=== PATIENT | male | born 1940 | race Caucasian/White ===

== ENCOUNTER 2016-06-05 06:49 | Day surgery (SDC) | payer MEDICARE ==
[2016-06-05] MEDS ORDERED: fentaNYL 100 MCG/2 ML SDV ONE (07:22)
[2016-06-05] MEDS ORDERED: Propofol 200 MG/20 ML SDV ONE (07:22)
[2016-06-05] MEDS ORDERED: Lactated Ringers 1,000 ML IV SCH (07:45)
[2016-06-05] MEDS ORDERED: Cyanocobalamin (Vitamin B12) 1,000 MCG/ML SDV IM ONE (08:00)
[2016-06-05] MEDS ORDERED: Glycopyrrolate 0.2 MG/ML 2 ML SYRINGE IVPUSH ONE (08:15)
[2016-06-05] MEDS ORDERED: MVI, Adult with Vitamin K 10 ML, Thiamine 200 MG, Chromium/Copper/Mang/Selen/Zn 1 ML in... IV ONE ×4 (08:45)
[2016-06-05 10:39] VITALS: BP 125/77
--- NOTE | 2016-06-07 14:38 | OR ---
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 OPERATIVE PROCEDURES: Upper GI endoscopy with biopsies of gastric pouch for CLOtest. ANESTHESIA: IV sedation. INDICATION FOR PROCEDURE: This is a 76-year-old male status post Coby-en-Y gastric bypass in 2003. Overall, he has had a very good result. Preoperatively, 287 pounds and he has been now maintaining weight around 180 pounds with a BMI of 26. He recently had some heartburn as well as dysphagia referable to the lower esophagus. He was just started on Protonix 2 days ago and the plan is to proceed with upper endoscopy with biopsies or dilation as indicated. Potential risks including bleeding and perforation were discussed, and the patient wishes to proceed. DETAILS OF PROCEDURE: The patient was taken to the operating room and placed in a left lateral decubitus position. IV sedation was administered, after which the upper GI endoscope was passed orally through the length of the esophagus into the gastric pouch and from there through the gastrojejunostomy roughly 20 cm into the Coby limb. The patient was noted to have a normal hypopharynx, larynx, upper esophageal sphincter, and esophageal body. In the EG junction at the level of the gastric pouch was some mild redness. No erosions or ulcers were seen and the gastrojejunostomy was widely patent with no significant inflammation at that location or within the more distal Coby limb. At this point, biopsies were obtained from the gastric pouch, sent for CLOtest for H. pylori. Minimal bleeding from the biopsy sites was seen and the procedure concluded. The patient was taken to the recovery room in satisfactory condition. At this point, we will have the patient continue the Protonix started 2 days ago. Follow up with Rosanne Matias in 1 month. Marv Stallworth MD /[id number]
== END 2016-06-05 11:30 | disposition home or self-care (01) ==
LOC: JP.SDS 06:49
PROVIDERS: ATTEND Surgery
DX: K29.70 Gastritis, unspecified, without bleeding (principal); G47.33 Obstructive sleep apnea (adult) (pediatric); Z98.84 Bariatric surgery status
CPT/HCPCS: 43239; 87081; J2704; J3010; J3411; J3420; J7120

== ENCOUNTER 2018-06-30 08:35 | Day surgery (SDC) | payer MEDICARE ==
[2018-06-30] MEDS ORDERED: Lactated Ringers 1,000 ML IV ONE (09:00)
[2018-06-30] MEDS ORDERED: Cyanocobalamin (Vitamin B12) 1,000 MCG/ML SDV IM ONE (09:00)
[2018-06-30] MEDS ORDERED: MVI, Adult with Vitamin K 10 ML, Thiamine 200 MG, Chromium/Copper/Mang/Selen/Zn 1 ML in... IV ONE ×4 (10:00)
[2018-06-30] MEDS ORDERED: Propofol 200 MG/20 ML SDV ONE (10:49)
[2018-06-30] MEDS ORDERED: fentaNYL 100 MCG/2 ML SDV ONE (10:49)
[2018-06-30 12:37] VITALS: BP 123/73
--- NOTE | 2018-07-07 08:55 | OR ---
DATE OF PROCEDURE: 06/30/2018 PREOPERATIVE DIAGNOSIS: Postprandial upper and mid abdominal pain. POSTOPERATIVE DIAGNOSIS: Postprandial upper and mid abdominal pain associated with normal upper GI endoscopy, status post Coby-en-Y gastric bypass. ANESTHESIA: IV sedation. INDICATIONS FOR PROCEDURE: A 78-year-old status post Coby-en-Y gastric bypass in 2003, recently has had increasing problems with postprandial abdominal pain. As part of his workup, he is undergoing upper GI endoscopy. Potential risks including bleeding and perforation were discussed, and the patient wishes to proceed. DETAILS OF PROCEDURE: The patient was taken to the operating room and placed in a left lateral decubitus position. IV sedation was administered, after which the upper GI endoscope was passed orally through the length of the esophagus and into the gastric pouch, from there through the gastrojejunostomy roughly 20 cm into the Coby limb. Overall, the examination was entirely normal. The pouch and gastrojejunostomy were without significant inflammation or stricturing, and otherwise the examination appeared to be completely normal. The scope was then withdrawn and the above findings reconfirmed. The patient's symptoms are suggestive of a partial small bowel obstruction. After discussion, we elected to proceed with an empiric laparotomy next week, and this will be set up for next Wednesday. Marv Stallworth MD /[id number]
== END 2018-06-30 13:05 | disposition home or self-care (01) ==
LOC: JP.SDS 08:35
PROVIDERS: ATTEND Surgery
DX: R10.13 Epigastric pain (principal); R13.10 Dysphagia, unspecified; I48.91 Unspecified atrial fibrillation; I10 Essential (primary) hypertension; J45.909 Unspecified asthma, uncomplicated; Z98.84 Bariatric surgery status; Z87.19 Personal history of other diseases of the digestive system; Z85.46 Personal history of malignant neoplasm of prostate
CPT/HCPCS: 43235; J2704; J3010; J3411; J3420; J7120

== ENCOUNTER 2018-07-05 05:31 | Inpatient (IN) | payer MEDICARE ==
[~2018-07-05 05:31] MED LIST: cefOXitin 2 GM in Sodium Chloride 0.9% 50 ML IV ONE
[2018-07-05] MEDS ORDERED: Acetaminophen 500 MG Tab PO ONE (05:45)
[2018-07-05] MEDS ORDERED: Scopolamine 1.5 MG Transdermal Patch TRDERM SCH (05:45)
[2018-07-05] MEDS ORDERED: Dextrose 5%-Lactated Ringers 1,000 ML IV SCH (06:30)
[2018-07-05] MEDS ORDERED: Meropenem 500 MG SDV ONE (06:38)
[2018-07-05] MEDS ORDERED: cefOXitin 2 GM in Sodium Chloride 0.9% 50 ML IV ONE (07:00)
[2018-07-05] MEDS ORDERED: Glycopyrrolate 0.2 MG/ML 5 ML MDV ONE (07:09)
[2018-07-05] MEDS ORDERED: Propofol 200 MG/20 ML SDV ONE (07:09)
[2018-07-05] MEDS ORDERED: Succinylcholine 200 MG/10 ML MDV ONE (07:09)
[2018-07-05] MEDS ORDERED: Neostigmine Methylsulfate 1 MG/ML 5 ML Syringe ONE (07:09)
[2018-07-05] MEDS ORDERED: Dexamethasone 4 MG/ML SDV ONE (07:09)
[2018-07-05] MEDS ORDERED: Rocuronium 50 MG/5 ML Vial ONE (07:09)
[2018-07-05] MEDS ORDERED: Ondansetron 4 MG/2 ML SDV ONE (07:09)
[2018-07-05] MEDS ORDERED: fentaNYL 250 MCG/5 ML SDV ONE ×2 (07:09→07:27)
[2018-07-05] MEDS ORDERED: HYDROmorphone/Normal Saline 15 MG/30 ML PCA IV PRN (07:28)
[2018-07-05] MEDS ORDERED: Ketamine 500 MG/5 ML MDV IV SCH (07:30)
[2018-07-05] MEDS ORDERED: Ketamine 50 MG in Sodium Chloride 0.9% 49.5 ML IV SCH (07:30)
[2018-07-05] MEDS ORDERED: Ropivacaine 40 ML, dexAMETHasone 8 MG, EPINEPHrine 0.4 MG, Sodium Chloride 0.9% 37.6 ML NERVRT SCH ×4 (07:30)
[2018-07-05] MEDS ORDERED: Naloxone 0.4 MG/ML SDV IV PRN (07:31)
[2018-07-05] MEDS ORDERED: Lactated Ringers 1,000 ML ONE (07:53)
[2018-07-05] MEDS ORDERED: Bupivacaine 0.5%/EPINEPHrine 1:200,000 50 ML MDV ONE (08:21)
[2018-07-05] MEDS ORDERED: hydrOXYzine HCl 100 MG/2 ML SDV IM ONE (09:06)
[2018-07-05] MEDS ORDERED: Labetalol 20 MG/4 ML Syringe IVPUSH PRN (09:47)
[2018-07-05] MEDS ORDERED: hydrOXYzine HCl 100 MG/2 ML SDV IM PRN (09:47)
[2018-07-05] MEDS ORDERED: Metoclopramide 10 MG/2 ML SDV IVPUSH PRN (09:47)
[2018-07-05] MEDS ORDERED: Ondansetron 4 MG/2 ML SDV IVPUSH PRN (09:47)
[2018-07-05] MEDS ORDERED: diphenhydrAMINE 50 MG/ML SDV IVPUSH PRN (09:47)
[2018-07-05] MEDS: Tamsulosin 0.4 MG Cap.ER PO SCH ×2 (11:42→20:36)
[2018-07-05] MEDS: Pantoprazole 40 MG Vial IVPUSH SCH (11:43)
[2018-07-05] MEDS: Acetaminophen Soln 650 MG/20.3 ML UD Cup PO SCH ×3 (11:43→23:57)
[2018-07-05] MEDS ORDERED: Warfarin 5 MG Tab PO ONE (12:00)
[2018-07-05] MEDS: Gabapentin 250 MG/5 ML Solution ML 470 ML Bottle PO SCH ×2 (14:11→20:40)
[2018-07-05] MEDS: cefOXitin 2 GM in Sodium Chloride 0.9% 50 ML IV SCH ×2 (14:12→20:36)
[2018-07-05] MEDS ORDERED: Lactated Ringers 500 ML IV ONE (15:12)
[2018-07-05] MEDS: Heparin Sodium 5,000 Units/ML Vial SUBCUT SCH (16:06)
[2018-07-05] MEDS: MVI, Adult with Vitamin K 10 ML, Thiamine 200 MG, Chromium/Copper/Mang/Selen/Zn 1 ML in... IV SCH ×4 (16:13)
[2018-07-05] MEDS ORDERED: Metoprolol Succinate 25 MG Tab.ER PO SCH (21:00)
[2018-07-05] MEDS ORDERED: Metoprolol Succinate 25 MG Tab.ER PO ONE (21:25)
[2018-07-05] MEDS ORDERED: Lactated Ringers 500 ML IV SCH (21:30)
[2018-07-05] MEDS: Dextrose 5%-Lactated Ringers 1,000 ML IV SCH (23:57)
[2018-07-06] MEDS: cefOXitin 2 GM in Sodium Chloride 0.9% 50 ML IV SCH (02:12)
[2018-07-06] MEDS ORDERED: Iohexol 647 MG/ML 50 ML SDV PO STA (02:18)
[2018-07-06] MEDS: Heparin Sodium 5,000 Units/ML Vial SUBCUT SCH ×2 (03:04→15:31)
[2018-07-06] MEDS ORDERED: Lactated Ringers 500 ML IV ONE ×2 (04:22→11:45)
--- NOTE | 2018-07-06 04:48 | CRLCR ---
Indication: Status post small bowel resection, leak check, history of Coby-en-Y Technique: KUB 3 view Comparison: None Findings/Impression: : Three frontal views of the abdomen were performed after administration of oral contrast material. Contrast material extends from the distal esophagus to the mid to distal jejunum. No evidence for extravasation of oral contrast. Midline laparotomy skin harjinder noted. Nonspecific bowel gas pattern. Surgical clips project over the pelvis. Dictated by Anh Minaya MD @ Jul 06 2018 4:47AM Signed by Dr. Anh Minaya @ Jul 06 2018 4:47AM
[2018-07-06] MEDS: Acetaminophen Soln 650 MG/20.3 ML UD Cup PO SCH ×4 (05:18→23:35)
--- NOTE | 2018-07-06 06:54 | PCM.SURGPN ---
- General Info Date of Service: 07/06/18 Date of Surgery/Procedure: 07/05/18 POD#: 1 Post-Op Diagnosis: Volvulous with revision of jejeunostomy Admission Diagnosis/Problem: Small bowel obstruction Functional Status: Reports: Pain Controlled, Ambulating, Urinating - Review of Systems General: Reports: No Symptoms HEENT: Reports: Visual Changes (Reports blurry vision that is new to him). Denies: Headaches Pulmonary: Denies: Shortness of Breath, Pleuritic Chest Pain, Cough Cardiovascular: Reports: Lightheadedness. Denies: Chest Pain, Dyspnea on Exertion Gastrointestinal: Denies: Abdominal Pain, Constipation, Diarrhea, Melena, Nausea , Vomiting Musculoskeletal: Reports: Leg Pain Skin: Reports: No Symptoms Neurological: Reports: Dizziness, Numbness (in his legs briefly this morning). Denies: Headache Psychiatric: Reports: No Symptoms - Patient Data Vitals - Most Recent: Last Vital Signs Temp 35.6 C 07/06/18 02:14 Pulse 64 07/06/18 02:14 Resp 16 07/06/18 02:14 BP 106/64 07/06/18 03:25 Pulse Ox 94 L 07/06/18 02:14 Weight - Most Recent: 80.104 kg I&O - Last 24 Hours: Intake & Output 07/05/18 07/05/18 07/06/18 14:59 22:59 06:59 Intake Total 480 2011 3050 Output Total 1025 1200 305 Balance -081 382 9163 Lab Results Last 24 Hrs: Laboratory Results - last 24 hr 07/05/18 07/06/18 07/06/18 Range/Units 15:23 04:00 04:00 WBC 10.9 12.9 H (4.5-11.0) K/uL RBC 3.89 L 3.51 L (4.30-5.90) M/uL Hgb 12.0 10.9 L (12.0-15.0) g/dL Hct 37.6 L 34.4 L (40.0-54.0) % MCV 97 98 (80-98) fL MCH 31 31 (27-31) pg MCHC 32 32 (32-36) % Plt Count 189 173 (150-400) K/uL Neut % (Auto) 84 H (36-66) % Lymph % (Auto) 8 L (24-44) % Lamar % (Auto) 8 H (2-6) % Eos % (Auto) 0 L (2-4) % Baso % (Auto) 0 (0-1) % PT 12.7 H (9.5-12.0) sec INR 1.16 (0.80-1.20) Sodium (140-148) mmol/L Potassium (3.6-5.2) mmol/L Chloride (100-108) mmol/L Carbon Dioxide (21-32) mmol/L Anion Gap (5.0-14.0) mmol/L BUN (7-18) mg/dL Creatinine (0.8-1.3) mg/dL Est Cr Clr Drug Dosing mL/min Estimated GFR (MDRD) (>60) Glucose (74-106) mg/dL Calcium (8.5-10.1) mg/dL Phosphorus (2.5-4.9) mg/dL Magnesium (1.8-2.4) mg/dL NT-Pro-B Natriuret Pep (5-450) pg/mL 07/06/18 Range/Units 04:00 WBC (4.5-11.0) K/uL RBC (4.30-5.90) M/uL Hgb (12.0-15.0) g/dL Hct (40.0-54.0) % MCV (80-98) fL MCH (27-31) pg MCHC (32-36) % Plt Count (150-400) K/uL Neut % (Auto) (36-66) % Lymph % (Auto) (24-44) % Lamar % (Auto) (2-6) % Eos % (Auto) (2-4) % Baso % (Auto) (0-1) % PT (9.5-12.0) sec INR (0.80-1.20) Sodium 142 (140-148) mmol/L Potassium 4.3 (3.6-5.2) mmol/L Chloride 105 (100-108) mmol/L Carbon Dioxide 31 (21-32) mmol/L Anion Gap 5.6 (5.0-14.0) mmol/L BUN 9 (7-18) mg/dL Creatinine 1.0 (0.8-1.3) mg/dL Est Cr Clr Drug Dosing 62.84 mL/min Estimated GFR (MDRD) > 60 (>60) Glucose 133 H (74-106) mg/dL Calcium 8.4 L (8.5-10.1) mg/dL Phosphorus 3.7 (2.5-4.9) mg/dL Magnesium 1.7 L (1.8-2.4) mg/dL NT-Pro-B Natriuret Pep 201 (5-450) pg/mL Med Orders - Current: Current Medications Acetaminophen (Tylenol) 650 mg PO Q6H [facility] Last Admin: 07/06/18 05:18 Dose: 650 mg Celecoxib (Celebrex) 200 mg PO DAILY@0800 [facility] Cyanocobalamin (Vitamin B12) 1,000 mcg IM ONETIME ONE Stop: 07/07/18 09:01 Diphenhydramine HCl (Benadryl) 50 mg IVPUSH Q4H PRN PRN Reason: ITCHING Escitalopram Oxalate (Lexapro) 20 mg PO DAILY [facility] Gabapentin (Neurontin) 300 mg PO TID [facility] Last Admin: 07/05/18 20:40 Dose: 300 mg Heparin Sodium (Porcine) (Heparin Sodium) 5,000 units SUBCUT Q12H [facility] Last Admin: 07/06/18 03:04 Dose: 5,000 units Hydromorphone HCl (Dilaudid Tube Roller 15 Mg In Ns 30 Ml) 0 mg IV ASDIRECTED PRN; Protocol PRN Reason: Pain Last Admin: 07/05/18 07:44 Dose: 0.3 mg Hydroxyzine HCl (Vistaril) 100 mg IM Q4H PRN PRN Reason: pain Dextrose/Lactated Ringer's (Dextrose 5%-Lactated Ringers) 1,000 mls @ 175 mls/ hr IV ASDIRECTED [facility] Last Admin: 07/05/18 23:57 Dose: 175 mls/hr Multivitamins/Minerals 10 ml/Thiamine HCl 200 mg/ Chromium/Copper/Manganese/ Seleni/Zn 1 ml/ Dextrose/Lactated Ringer's 1,013 mls @ 175 mls/hr IV DAILY@ 1600 [facility] Last Admin: 07/05/18 16:13 Dose: 175 mls/hr Labetalol HCl (Normodyne) 5 mg IVPUSH Q5M PRN PRN Reason: SBP over 160 OR DBP over 95 Metoclopramide HCl (Reglan) 10 mg IVPUSH Q6H PRN PRN Reason: NAUSEA NOT CONTROL BY ZOFRAN Metoprolol Succinate (Toprol Xl) 37.5 mg PO BEDTIME [facility] Miscellaneous Information (Remove Patch) 1 ea TRDERM ONETIME ONE Stop: 07/07/18 10:01 Naloxone HCl (Narcan) 0.1 mg IV ASDIRECTED PRN PRN Reason: decreased respiratory rate Scopolamine Patch (Check) 1 each TOP DAILY [facility] Stop: 07/07/18 09:48 Ondansetron HCl (Zofran) 4 mg IVPUSH Q4H PRN PRN Reason: Nausea/Vomiting Pantoprazole Sodium (Protonix Iv) 40 mg IVPUSH Q24H [facility] Last Admin: 07/05/18 11:43 Dose: 40 mg Scopolamine (Transderm-Scop) 1.5 mg TRDERM Q72H [facility] Stop: 07/07/18 10:00 Last Admin: 07/05/18 05:53 Dose: 1.5 mg Tamsulosin HCl (Flomax) 0.4 mg PO BEDTIME [facility] Last Admin: 07/05/18 20:36 Dose: 0.4 mg Discontinued Medications Acetaminophen (Tylenol Extra Strength) 1,000 mg PO ONETIME ONE Stop: 07/05/18 05:46 Last Admin: 07/05/18 05:54 Dose: 1,000 mg Bupivacaine HCl/Epinephrine Bitart (Marcaine 0.5%/Epinephrine 1:200,000) Confirm Administered Dose 50 ml .ROUTE .STK-MED ONE Stop: 07/05/18 08:22 Last Admin: 07/05/18 08:31 Dose: 30 ml Ropivacaine 40 ml/Dexamethasone 8 mg/Epinephrine HCl 0.4 mg/ Sodium Chloride 37.6 ml 0 ml NERVRT ASDIRECTED [facility] Last Admin: 07/05/18 07:49 Dose: 80 syringe Dexamethasone (Dexamethasone) Confirm Administered Dose 4 mg .ROUTE .STK-MED ONE Stop: 07/05/18 07:10 Fentanyl (Sublimaze) Confirm Administered Dose 250 mcg .ROUTE .STK-MED ONE Stop: 07/05/18 07:10 Fentanyl (Sublimaze) Confirm Administered Dose 250 mcg .ROUTE .STK-MED ONE Stop: 07/05/18 07:28 Glycopyrrolate (Robinul) Confirm Administered Dose 1 mg .ROUTE .STK-[facility] ONE Stop: 07/05/18 07:10 Hydroxyzine HCl (Vistaril) 75 mg IM ONETIME ONE Stop: 07/05/18 09:07 Last Admin: 07/05/18 09:10 Dose: 75 mg Dextrose/Lactated Ringer's (Dextrose 5%-Lactated Ringers) 1,000 mls @ 100 mls/ hr IV ASDIRECTED [facility] Last Admin: 07/05/18 05:53 Dose: 100 mls/hr Cefoxitin Sodium 2 gm/ Sodium (Chloride) 50 mls @ 100 mls/hr IV ONETIME ONE Stop: 07/05/18 07:29 Last Admin: 07/05/18 07:48 Dose: 100 mls/hr Linezolid (Zyvox) Confirm Administered Dose 300 mls @ as directed .ROUTE .[facility] ONE Stop: 07/05/18 06:39 Lactated Ringer's (Ringers, Lactated) Confirm Administered Dose 1,000 mls @ as directed .ROUTE .[facility] ONE Stop: 07/05/18 07:54 Cefoxitin Sodium 2 gm/ Sodium (Chloride) 50 mls @ 100 mls/hr IV Q6H [facility] Stop: 07/06/18 02:29 Last Admin: 07/06/18 02:12 Dose: 100 mls/hr Lactated Ringer's (Ringers, Lactated) 500 mls @ 1,000 mls/hr IV ASDIRECTED ONE Stop: 07/05/18 15:41 Last Admin: 07/05/18 15:40 Dose: 1,000 mls/hr Lactated Ringer's (Ringers, Lactated) 500 mls @ 500 mls/hr IV ASDIRECTED [facility] Stop: 07/05/18 22:30 Last Admin: 07/05/18 21:35 Dose: 500 mls/hr Lactated Ringer's (Ringers, Lactated) 500 mls @ 500 mls/hr IV ONETIME ONE Stop: 07/06/18 05:21 Last Admin: 07/06/18 04:39 Dose: 500 mls/hr Iohexol (Omnipaque-300) 50 ml PO .ASDIRECTED [facility] Stop: 07/06/18 02:19 Last Admin: 07/06/18 02:23 Dose: 50 ml Meropenem (Merrem) Confirm Administered Dose 500 mg .ROUTE .STK-MED ONE Stop: 07/05/18 06:39 Last Admin: 07/05/18 08:15 Dose: 500 mg Metoprolol Succinate (Toprol Xl) 12.5 mg PO ONETIME ONE Stop: 07/05/18 21:26 Last Admin: 07/05/18 21:40 Dose: 12.5 mg Neostigmine Methylsulfate (Neostigmine) Confirm Administered Dose 5 mg .ROUTE .STK-MED ONE Stop: 07/05/18 07:10 Ondansetron HCl (Zofran) Confirm Administered Dose 4 mg .ROUTE .STK-MED ONE Stop: 07/05/18 07:10 Propofol (Diprivan 20 Ml) Confirm Administered Dose 200 mg .ROUTE .STK-MED ONE Stop: 07/05/18 07:10 Rocuronium [place] (Zemuron) Confirm Administered Dose 50 mg .ROUTE .STK-MED ONE Stop: 07/05/18 07:10 Succinylcholine Chloride (Quelicin) Confirm Administered Dose 200 mg .ROUTE .STK -MED ONE Stop: 07/05/18 07:10 Warfarin Sodium (Coumadin) 10 mg PO ONETIME ONE Stop: 07/05/18 12:01 Last Admin: 07/05/18 11:42 Dose: 10 mg - Exam Wound/Incisions: Healing Well, Dressing Dry and Intact, No Drainage General: Alert, Oriented HEENT: Pupils Equal, Pupils Reactive, Mucous Membr. Moist/[place] Lungs: Clear to Auscultation, Normal Respiratory Effort Cardiovascular: Regular Rate, Regular Rhythm GI/Abdominal Exam: Normal Bowel Sounds, Soft, Tender (Left sided tenderness at the base of the ribs) Extremities: No: Pedal Edema, Leg Pain Neurological: No New Focal Deficit, Normal Speech Psy/Mental Status: Alert, Normal Affect, Normal Mood - Problem List Review Problem List Initiated/Reviewed/Updated: Yes - My Orders Last 24 Hours: Active Orders 24 hr Category Date Time Status Patient Status [ADT] Routine ADT 07/05/18 08:50 Active Ambulate [RC] ASDIRECTED Care 07/05/18 09:38 Active Communication Order [RC] ASDIRECTED Care 07/07/18 04:00 Active Communication Order [RC] ROUTINE Care 07/05/18 09:38 Active Dorsiflex/Plantar flex x 10 [RC] QSHIFT Care 07/05/18 09:38 Active Drain Management [RC] ASDIRECTED Care 07/05/18 09:38 Inactive Head of Bed Elevation [RC] CONTINUOUS Care 07/05/18 09:38 Active Insert Urinary Catheter [OM.PC] Per Unit Routine Care 07/05/18 09:38 Ordered Intake and Output [RC] ASDIRECTED Care 07/05/18 09:38 Active Notify Provider Intake and Out [RC] ASDIRECTED Care 07/05/18 09:38 Active Notify Provider [RC] PRN Care 07/05/18 09:38 Active Oxygen Therapy [RC] ASDIRECTED Care 07/05/18 09:38 Active Pneumonia Education [RC] UPON Care 07/05/18 09:38 Active Pulse Oximetry [RC] ASDIRECTED Care 07/05/18 09:38 Active RT BiPAP/CPAP [RC] ASDIRECTED Care 07/05/18 09:38 Active RT Incentive Spirometry [RC] ASDIRECTED Care 07/05/18 09:38 Active RT Incentive Spirometry [RC] Q1HWA Care 07/05/18 09:38 Active Telemetry Monitoring [Cardiac Monitoring] [RC] .As Care 07/05/18 15:10 Active Directed Turn, Cough, Deep Breathe [RC] Q1HWA Care 07/05/18 09:38 Active Up to Chair [RC] TIDMEALS Care 07/05/18 09:38 Active Urinary Catheter Assessment [RC] Q12H Care 07/05/18 09:40 Active Vital Signs [RC] Q4H Care 07/05/18 09:38 Active Consult to Bariatric Services [CONS] Routine Cons 07/05/18 09:38 Active Consult to Undergraduate Internship [CONS] Routine Cons 07/05/18 09:38 Active Respiratory Care Assess and Treatment [CONS] Routine Cons 07/05/18 09:38 Active Bariatric Diet [DIET] Diet 07/05/18 Lunch Active INR,PT,PROTHROMBIN TIME [COAG] DAILY Lab 07/07/18 04:00 Ordered INR,PT,PROTHROMBIN TIME [COAG] DAILY Lab 07/08/18 04:00 Ordered INR,PT,PROTHROMBIN TIME [COAG] DAILY Lab 07/09/18 04:00 Ordered INR,PT,PROTHROMBIN TIME [COAG] DAILY Lab 07/10/18 04:00 Ordered INR,PT,PROTHROMBIN TIME [COAG] DAILY Lab 07/11/18 04:00 Ordered Acetaminophen [Tylenol] Med 07/05/18 12:00 Active 650 mg PO Q6H Celecoxib [CeleBREX] Med 07/06/18 08:00 Active 200 mg PO DAILY@0800 Cyanocobalamin (Vitamin B12) [Vitamin B12] Med 07/07/18 09:00 Once 1,000 mcg IM ONETIME ONE Dextrose 5%-Lactated Ringers 1,000 ml Med 07/05/18 10:00 Active IV ASDIRECTED Escitalopram [Lexapro] Med 07/06/18 09:00 Active 20 mg PO DAILY Gabapentin [Neurontin] Med 07/05/18 14:00 Active 300 mg PO TID HYDROmorphone/Normal Saline [Dilaudid ASSIST[employer] PROFESSOR OF DIETETICS 15 MG in NS Med 07/05/18 07:28 Active 30 ML] See Protocol IV ASDIRECTED PRN Heparin Sodium Med 07/05/18 16:00 Active 5,000 units SUBCUT Q12H Labetalol [Normodyne] Med 07/05/18 09:47 Active 5 mg IVPUSH Q5M PRN MVI, Adult with Vitamin K [Infuvite Adult] 10 ml Med 07/05/18 16:00 Active Thiamine [Vitamin B-1] 200 mg Chromium/Copper/Festus/Selen/Zn [Multitrace-5 Concentrate ] 1 ml Dextrose 5%-Lactated Ringers 1,000 ml IV DAILY@1600 Metoclopramide [Reglan] Med 07/05/18 09:47 Active 10 mg IVPUSH Q6H PRN Metoprolol Succinate [Toprol XL] Med 07/05/18 21:00 Hold 37.5 mg PO BEDTIME Naloxone [Narcan] Med 07/05/18 07:31 Active 0.1 mg IV ASDIRECTED PRN Non-Formulary Medication [NF Drug] Med 07/05/18 09:47 Active 1 each TOP DAILY Ondansetron [Zofran] Med 07/05/18 09:47 Active 4 mg IVPUSH Q4H PRN Pantoprazole [ProTONIX IV] Med 07/05/18 12:00 Active 40 mg IVPUSH Q24H Remove Patch Med 07/07/18 10:00 Once 1 ea TRDERM ONETIME ONE Tamsulosin [Flomax] Med 07/05/18 12:00 Active 0.4 mg PO BEDTIME diphenhydrAMINE [Benadryl] Med 07/05/18 09:47 Active 50 mg IVPUSH Q4H PRN hydrOXYzine HCl [Vistaril] Med 07/05/18 09:47 Active 100 mg IM Q4H PRN Abdominal Binder [OM.PC] Routine Oth 07/05/18 09:38 Ordered Oral Care [OM.PC] BID Oth 07/05/18 09:45 Ordered Oral Care [OM.PC] BID Oth 07/06/18 09:45 Ordered PT Screening [OM.PC] Routine Oth 07/05/18 09:38 Active Specialty Bed [OM.PC] Routine Oth 07/05/18 09:38 Ordered Resuscitation Status Routine Resus Stat 07/05/18 09:38 Ordered Medication Orders Acetaminophen (Tylenol) 650 mg PO Q6H [facility] Last Admin: 07/06/18 05:18 Dose: 650 mg Admin: 07/05/18 23:57 Dose: 650 mg Admin: 07/05/18 18:09 Dose: 650 mg Admin: 07/05/18 11:43 Dose: 650 mg Celecoxib (Celebrex) 200 mg PO DAILY@0800 [facility] Cyanocobalamin (Vitamin B12) 1,000 mcg IM ONETIME ONE Stop: 07/07/18 09:01 Diphenhydramine HCl (Benadryl) 50 mg IVPUSH Q4H PRN PRN Reason: ITCHING Escitalopram Oxalate (Lexapro) 20 mg PO DAILY [facility] Gabapentin (Neurontin) 300 mg PO TID [facility] Last Admin: 07/05/18 20:40 Dose: 300 mg Admin: 07/05/18 14:11 Dose: 300 mg Heparin Sodium (Porcine) (Heparin Sodium) 5,000 units SUBCUT Q12H [facility] Last Admin: 07/06/18 03:04 Dose: 5,000 units Admin: 07/05/18 16:06 Dose: 5,000 units Hydromorphone HCl (Dilaudid Tube Roller 15 Mg In Ns 30 Ml) 0 mg IV ASDIRECTED PRN; Protocol PRN Reason: Pain Last Admin: 07/05/18 07:44 Dose: 0.3 mg Hydroxyzine HCl (Vistaril) 100 mg IM Q4H PRN PRN Reason: pain Dextrose/Lactated Ringer's (Dextrose 5%-Lactated Ringers) 1,000 mls @ 175 mls/ hr IV ASDIRECTED [facility] Last Admin: 07/05/18 23:57 Dose: 175 mls/hr Multivitamins/Minerals 10 ml/Thiamine HCl 200 mg/ Chromium/Copper/Manganese/ Seleni/Zn 1 ml/ Dextrose/Lactated Ringer's 1,013 mls @ 175 mls/hr IV DAILY@ 1600 [facility] Last Admin: 07/05/18 16:13 Dose: 175 mls/hr Labetalol HCl (Normodyne) 5 mg IVPUSH Q5M PRN PRN Reason: SBP over 160 OR DBP over 95 Metoclopramide HCl (Reglan) 10 mg IVPUSH Q6H PRN PRN Reason: NAUSEA NOT CONTROL BY ZOFRAN Metoprolol Succinate (Toprol Xl) 37.5 mg PO BEDTIME [facility] Miscellaneous Information (Remove Patch) 1 ea TRDERM ONETIME ONE Stop: 07/07/18 10:01 Naloxone HCl (Narcan) 0.1 mg IV ASDIRECTED PRN PRN Reason: decreased respiratory rate Scopolamine Patch (Check) 1 each TOP DAILY [facility] Stop: 07/07/18 09:48 Ondansetron HCl (Zofran) 4 mg IVPUSH Q4H PRN PRN Reason: Nausea/Vomiting Pantoprazole Sodium (Protonix Iv) 40 mg IVPUSH Q24H [facility] Last Admin: 07/05/18 11:43 Dose: 40 mg Scopolamine (Transderm-Scop) 1.5 mg TRDERM Q72H [facility] Stop: 07/07/18 10:00 Last Admin: 07/05/18 05:53 Dose: 1.5 mg Tamsulosin HCl (Flomax) 0.4 mg PO BEDTIME [facility] Last Admin: 07/05/18 20:36 Dose: 0.4 mg Admin: 07/05/18 11:42 Dose: 0.4 mg - Assessment Assessment (Free Text/Narrative):: Prem Victor is a 78 yo male s/o 1 day after surgical correction of volvulus with a jejunostomy revision. He is healing well after the surgery with pain well controlled. He has had one small, formed stool w/o blood since the surgery. His biggest complaint is his dizziness and lightheadedness whenever he changes from laying down to sitting or from sitting to standing. He has been having some consistently low BPs in the 90s/60s. He has responded minimally to fluid 2 L of LR; urine output was 2530 ml from his Ruggiero yesterday. His metoprolol 12.5 dose was held yesterday. He had minimal blood loss during surgery; Hgb dropped from 12.0 to 10.9 after surgery. He does not appear septic , his heart rate is stable around 70 bpm, and he does not appear to be having an allergic reaction. Kidney function and electrolytes are all normal. - Plan Plan (Free Text/Narrative):: 1. S/p SBO surgical revision -Tylenol and dilaudid for pain -10 mg Warfarin; bridge with heparin -Step 3 diet 2. Low BP -Continue to monitor -Up with assist -LR bolus
[2018-07-06] MEDS: Dextrose 5%-Lactated Ringers 1,000 ML IV SCH (07:12)
[2018-07-06] MEDS: Celecoxib 200 MG Cap PO SCH (07:17)
[2018-07-06] MEDS ORDERED: diphenhydrAMINE 25 MG Cap PO PRN (08:26)
[2018-07-06] MEDS ORDERED: HYDROmorphone 2 MG Tab PO PRN (08:28)
[2018-07-06] MEDS: Gabapentin 250 MG/5 ML Solution ML 470 ML Bottle PO SCH ×2 (08:52→14:53)
[2018-07-06] MEDS: Escitalopram 20 MG Tab PO SCH (08:53)
[2018-07-06] MEDS: SCOPOLAMINE PATCH CHECK TOP SCH (08:53)
[2018-07-06] MEDS ORDERED: Metoprolol Succinate 25 MG Tab.ER PO SCH (09:00)
[2018-07-06] MEDS ORDERED: Escitalopram 20 MG Tab PO SCH ×2 (09:00)
[2018-07-06] MEDS: Magnesium Sulfate/Water 2 GM in Premix Bag 1 BAG IV SCH ×3 (09:04→21:17)
[2018-07-06] MEDS: Pantoprazole 40 MG Vial IVPUSH SCH (11:17)
--- NOTE | 2018-07-06 12:17 | OR ---
DATE OF PROCEDURE: 07/05/2018 PREOPERATIVE DIAGNOSIS: Partial small bowel obstruction. POSTOPERATIVE DIAGNOSES: 1. 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 2. Separate stricture of mid Coby limb. 3. Extensive intraabdominal adhesions. OPERATIVE PROCEDURES: Exploratory laparotomy with lysis of extensive adhesions and, 1. Reduction of small bowel volvulus and closure of internal hernia (00148). 2. Revision of jejunojejunostomy component of Coby-en-Y gastric bypass (18818). 3. Small bowel stricturoplasty (07243). 4. Placement of Interceed mesh to displace viscera from incision and pelvic and abdominal ren to limit recurrent adhesion formation (84058). ANESTHESIA: General. PACKING CHECKER: ANDREA Cole3. INDICATION FOR PROCEDURE: This is a 78-year-old male presenting with postprandial crampy abdominal pain and bloating, suggestive of partial small bowel obstruction. The plan is to proceed with limited open laparotomy with lysis of adhesions and bowel resection as indicated. Potential risks including bleeding, infection, leaks from various GI tract closures, problems with recurrent obstruction over time were all reviewed, and the patient wishes to proceed. DETAILS OF PROCEDURE: The patient was taken to the operating room and placed in a supine position. After general endotracheal anesthesia was induced, the abdomen was prepped and draped, and a Ruggiero catheter inserted. An upper midline incision from the umbilicus upward toward the xiphoid was made and carried down through the full-thickness abdominal wall. Upon entering the abdomen, fairly extensive adhesions between the omentum and the anterior abdominal wall were taken down. There were also small bowel adhesions. This included an area of the Coby limb, which was adherent to the abdominal wall and with angulation that resulted in a chronic-appearing stricture at the level of the mid Coby limb. The patient was noted to have a small bowel volvulus with portion of the jejunojejunostomy rotating underneath the leaves of the mesentery at that anastomosis. This was reduced and the patient was noted to have some narrowing at the point where the Coby limb entered the jejunojejunostomy. At this point, the Coby limb was therefore detached from the jejunojejunostomy with NILE stapler. A small segment of bowel was resected, and this Coby limb was then reattached to the small bowel roughly 20 cm distal to the original jejunojejunostomy with a [id number] enteroenterostomy with NILE stapler. The common opening was closed transversely with the same stapler and angles anastomosed were reinforced with 3-0 Vicryl stitch. The mesenteric defect was then closed with a running 2-0 silk stitch to provide some permanency. The area of stricturing had been taken down limb, and this was freed up of some adhesions and stricturoplasty accomplished with an internal firing of the NILE stapler at the point of stricturing between the 2 portions of bowel lying [id number] and the common opening closed with the NILE stapler as well. Angles of anastomosis of this anastomosis were likewise reinforced with some 3-0 Vicryl stitch. The abdomen was then irrigated with meropenem-containing saline solution. To limit recurrent adhesion formation, an Interceed mesh was placed underneath the incision and from there down toward the pelvis. The midline fascia was then approximated with #2 Vicryl stitch and the subcutaneous tissue with 4-0 Vicryl stitch, and the skin with harjinder. Dressing was applied. The patient was taken to the recovery room in a satisfactory condition. There were no evident complications. Marv Stallworth MD /[id number]
[2018-07-06] MEDS ORDERED: Warfarin 5 MG Tab PO ONE (13:00)
[2018-07-06] MEDS: MVI, Adult with Vitamin K 10 ML, Thiamine 200 MG, Chromium/Copper/Mang/Selen/Zn 1 ML in... IV SCH ×4 (15:31)
[2018-07-06] MEDS: Tamsulosin 0.4 MG Cap.ER PO SCH (21:17)
[2018-07-06] MEDS ORDERED: Metoprolol Succinate 25 MG Tab.ER PO STA (21:27)
[2018-07-06] MEDS: Metoprolol Succinate 25 MG Tab.ER PO SCH (21:29)
[2018-07-07] MEDS: Dextrose 5%-Lactated Ringers 1,000 ML IV SCH ×2 (01:52→23:02)
[2018-07-07] MEDS: Magnesium Sulfate/Water 2 GM in Premix Bag 1 BAG IV SCH ×4 (04:07→23:56)
[2018-07-07] MEDS: Acetaminophen Soln 650 MG/20.3 ML UD Cup PO PRN ×3 (04:07→16:50)
[2018-07-07] MEDS: Heparin Sodium 5,000 Units/ML Vial SUBCUT SCH ×2 (04:07→16:48)
[2018-07-07] MEDS: Celecoxib 200 MG Cap PO SCH (07:46)
[2018-07-07] MEDS: Pantoprazole 40 MG Delayed-Release Granules 1 Packet PO SCH (07:46)
--- NOTE | 2018-07-07 08:55 | PCM.SURGPN ---
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 Denies: Trouble Speaking , Difficulty Walking, Change in Speech - Patient Data Vitals - Most Recent: Last Vital Signs Temp 99.6 F 07/07/18 07:29 Pulse 94 07/07/18 07:29 Resp 24 H 07/07/18 07:29 BP 97/48 L 07/07/18 07:29 Pulse Ox 93 L 07/07/18 07:29 Weight - Most Recent: 176 lb 9.6 oz I&O - Last 24 Hours: Intake & Output 07/06/18 07/07/18 07/07/18 22:59 06:59 14:59 Intake Total 1873 2493 Output Total 1205 561 Balance 668 1932 Lab Results Last 24 Hrs: Laboratory Results - last 24 hr 07/07/18 07/07/18 07/07/18 Range/Units 02:48 03:16 03:16 WBC 8.8 (4.5-11.0) K/uL RBC 3.70 L (4.30-5.90) M/uL Hgb 11.4 L (12.0-15.0) g/dL Hct 35.8 L (40.0-54.0) % MCV 97 (80-98) fL MCH 31 (27-31) pg MCHC 32 (32-36) % Plt Count 182 (150-400) K/uL PT 12.9 H (9.5-12.0) sec INR 1.18 (0.80-1.20) Sodium (140-148) mmol/L Potassium (3.6-5.2) mmol/L Chloride (100-108) mmol/L Carbon Dioxide (21-32) mmol/L Anion Gap (5.0-14.0) mmol/L BUN (7-18) mg/dL Creatinine (0.8-1.3) mg/dL Est Cr Clr Drug Dosing mL/min Estimated GFR (MDRD) (>60) Glucose (74-106) mg/dL Calcium (8.5-10.1) mg/dL Phosphorus (2.5-4.9) mg/dL Magnesium (1.8-2.4) mg/dL Total Bilirubin (0.2-1.0) mg/dL AST (15-37) U/L ALT (12-78) U/L Alkaline Phosphatase (46-116) U/L Total Protein (6.4-8.2) g/dL Albumin (3.4-5.0) g/dL Globulin (2.3-3.5) g/dL Albumin/Globulin Ratio (1.2-2.2) Urine Color Yellow Urine Appearance Slightly cloudy Urine pH 5.0 (4.5-8.0) Ur Specific [place] 1.020 (1.008-1.030) Urine Protein Trace (NEGATIVE) mg/dL Urine Glucose (UA) Normal (NEGATIVE) mg/dL Urine Ketones Negative (NEGATIVE) mg/dL Urine Occult Blood Large (NEGATIVE) Urine Nitrite Negative (NEGAITVE) Urine Bilirubin Negative (NEGATIVE) Urine Urobilinogen Normal (NORMAL) mg/dL Ur Leukocyte Esterase Moderate (NEGATIVE) Urine RBC 10-20 H (0-5) Urine WBC 0-5 (0-5) Ur Epithelial Cells Rare Amorphous Sediment Not seen Urine Bacteria Few Urine Mucus Few 07/07/18 Range/Units 03:16 WBC (4.5-11.0) K/uL RBC (4.30-5.90) M/uL Hgb (12.0-15.0) g/dL Hct (40.0-54.0) % MCV (80-98) fL MCH (27-31) pg MCHC (32-36) % Plt Count (150-400) K/uL PT (9.5-12.0) sec INR (0.80-1.20) Sodium 137 L (140-148) mmol/L Potassium 3.7 (3.6-5.2) mmol/L Chloride 102 (100-108) mmol/L Carbon Dioxide 29 (21-32) mmol/L Anion Gap 9.7 (5.0-14.0) mmol/L BUN 11 (7-18) mg/dL Creatinine 1.1 (0.8-1.3) mg/dL Est Cr Clr Drug Dosing 56.94 mL/min Estimated GFR (MDRD) > 60 (>60) Glucose 115 H (74-106) mg/dL Calcium 8.2 L (8.5-10.1) mg/dL Phosphorus 2.4 L (2.5-4.9) mg/dL Magnesium 2.1 (1.8-2.4) mg/dL Total Bilirubin 0.4 (0.2-1.0) mg/dL AST 38 H (15-37) U/L ALT 26 (12-78) U/L Alkaline Phosphatase 72 (46-116) U/L Total Protein 5.5 L (6.4-8.2) g/dL Albumin 2.7 L (3.4-5.0) g/dL Globulin 2.8 (2.3-3.5) g/dL Albumin/Globulin Ratio 1.0 L (1.2-2.2) Urine Color Urine Appearance Urine pH (4.5-8.0) Ur Specific [place] (1.008-1.030) Urine Protein (NEGATIVE) mg/dL Urine Glucose (UA) (NEGATIVE) mg/dL Urine Ketones (NEGATIVE) mg/dL Urine Occult Blood (NEGATIVE) Urine Nitrite (NEGAITVE) Urine Bilirubin (NEGATIVE) Urine Urobilinogen (NORMAL) mg/dL Ur Leukocyte Esterase (NEGATIVE) Urine RBC (0-5) Urine WBC (0-5) Ur Epithelial Cells Amorphous Sediment Urine Bacteria Urine Mucus Rios Results Last 24 Hrs: Microbiology 07/07/18 00:45 Clostridioides difficile (PCR) - Final Stool / Feces NEGATIVE CDIFF TOXIN Med Orders - Current: Current Medications Acetaminophen (Tylenol) 650 mg PO Q4H PRN PRN Reason: fever/pain Last Admin: 07/07/18 04:07 Dose: 650 mg Celecoxib (Celebrex) 200 mg PO DAILY@0800 [facility] Last Admin: 07/07/18 07:46 Dose: 200 mg Cyanocobalamin (Vitamin B12) 1,000 mcg IM ONETIME ONE Stop: 07/07/18 09:01 Diphenhydramine HCl (Benadryl) 50 mg IVPUSH Q4H PRN PRN Reason: ITCHING Diphenhydramine HCl (Benadryl) 25 mg PO BEDTIME PRN PRN Reason: Sleep Escitalopram Oxalate (Lexapro) 20 mg PO DAILY [facility] Last Admin: 07/06/18 08:53 Dose: 20 mg Heparin Sodium (Porcine) (Heparin Sodium) 5,000 units SUBCUT Q12H [facility] Last Admin: 07/07/18 04:07 Dose: 5,000 units Hydromorphone HCl (Dilaudid) 2 - 4 mg PO Q4H PRN PRN Reason: Pain Hydroxyzine HCl (Vistaril) 100 mg IM Q4H PRN PRN Reason: pain Last Admin: 07/06/18 19:41 Dose: 100 mg Multivitamins/Minerals 10 ml/Thiamine HCl 200 mg/ Chromium/Copper/Manganese/ Seleni/Zn 1 ml/ Dextrose/Lactated Ringer's 1,013 mls @ 100 mls/hr IV DAILY@ 1600 [facility] Last Admin: 07/06/18 15:31 Dose: 100 mls/hr Magnesium Sulfate 2 gm/ Premix 50 mls @ 25 mls/hr IV Q6H [facility] Stop: 07/09/18 05:59 Last Admin: 07/07/18 04:07 Dose: 25 mls/hr Dextrose/Lactated Ringer's (Dextrose 5%-Lactated Ringers) 1,000 mls @ 100 mls/ hr IV ASDIRECTED [facility] Last Admin: 07/07/18 01:52 Dose: 100 mls/hr Potassium Phosphate 22.5 mmole (/ Sodium Chloride) 257.5 mls @ 86 mls/hr IV Q3H [facility] Stop: 07/07/18 15:59 Labetalol HCl (Normodyne) 5 mg IVPUSH Q5M PRN PRN Reason: SBP over 160 OR DBP over 95 Metoclopramide HCl (Reglan) 10 mg IVPUSH Q6H PRN PRN Reason: NAUSEA NOT CONTROL BY ZOFRAN Metoprolol Succinate (Toprol Xl) 37.5 mg PO BEDTIME [facility] Last Admin: 07/06/18 21:29 Dose: Not Given Miscellaneous Information (Remove Patch) 1 ea TRDERM ONETIME ONE Stop: 07/07/18 10:01 Naloxone HCl (Narcan) 0.1 mg IV ASDIRECTED PRN PRN Reason: decreased respiratory rate Scopolamine Patch (Check) 1 each TOP DAILY [facility] Stop: 07/07/18 09:48 Last Admin: 07/06/18 08:53 Dose: Not Given Ondansetron HCl (Zofran) 4 mg IVPUSH Q4H PRN PRN Reason: Nausea/Vomiting Pantoprazole Sodium (Protonix Granules) 40 mg PO ACBREAKFAST [facility] Last Admin: 07/07/18 07:46 Dose: 40 mg Tamsulosin HCl (Flomax) 0.4 mg PO BEDTIME [facility] Last Admin: 07/06/18 21:17 Dose: 0.4 mg Discontinued Medications Acetaminophen (Tylenol Extra Strength) 1,000 mg PO ONETIME ONE Stop: 07/05/18 05:46 Last Admin: 07/05/18 05:54 Dose: 1,000 mg Acetaminophen (Tylenol) 650 mg PO Q6H [facility] Last Admin: 07/06/18 23:35 Dose: 650 mg Bupivacaine HCl/Epinephrine Bitart (Marcaine 0.5%/Epinephrine 1:200,000) Confirm Administered Dose 50 ml .ROUTE .STK-MED ONE Stop: 07/05/18 08:22 Last Admin: 07/05/18 08:31 Dose: 30 ml Ropivacaine 40 ml/Dexamethasone 8 mg/Epinephrine HCl 0.4 mg/ Sodium Chloride 37.6 ml 0 ml NERVRT ASDIRECTED [facility] Last Admin: 07/05/18 07:49 Dose: 80 syringe Dexamethasone (Dexamethasone) Confirm Administered Dose 4 mg .ROUTE .STK-MED ONE Stop: 07/05/18 07:10 Fentanyl (Sublimaze) Confirm Administered Dose 250 mcg .ROUTE .STK-MED ONE Stop: 07/05/18 07:10 Fentanyl (Sublimaze) Confirm Administered Dose 250 mcg .ROUTE .STK-MED ONE Stop: 07/05/18 07:28 Gabapentin (Neurontin) 300 mg PO TID [facility] Last Admin: 07/06/18 14:53 Dose: 300 mg Glycopyrrolate (Robinul) Confirm Administered Dose 1 mg .ROUTE .STK-MED ONE Stop: 07/05/18 07:10 Hydromorphone HCl (Dilaudid [employer] 15 Mg In Ns 30 Ml) 0 mg IV ASDIRECTED PRN; Protocol PRN Reason: Pain Last Admin: 07/05/18 07:44 Dose: 0.3 mg Hydroxyzine HCl (Vistaril) 75 mg IM ONETIME ONE Stop: 07/05/18 09:07 Last Admin: 07/05/18 09:10 Dose: 75 mg Dextrose/Lactated Ringer's (Dextrose 5%-Lactated Ringers) 1,000 mls @ 100 mls/ hr IV ASDIRECTED [facility] Last Admin: 07/05/18 05:53 Dose: 100 mls/hr Cefoxitin Sodium 2 gm/ Sodium (Chloride) 50 mls @ 100 mls/hr IV ONETIME ONE Stop: 07/05/18 07:29 Last Admin: 07/05/18 07:48 Dose: 100 mls/hr Linezolid (Zyvox) Confirm Administered Dose 300 mls @ as directed .ROUTE .STK- MED ONE Stop: 07/05/18 06:39 Lactated Ringer's (Ringers, Lactated) Confirm Administered Dose 1,000 mls @ as directed .ROUTE .[facility] ONE Stop: 07/05/18 07:54 Dextrose/Lactated Ringer's (Dextrose 5%-Lactated Ringers) 1,000 mls @ 175 mls/ hr IV ASDIRECTED [facility] Last Admin: 07/06/18 07:12 Dose: 175 mls/hr Cefoxitin Sodium 2 gm/ Sodium (Chloride) 50 mls @ 100 mls/hr IV Q6H [facility] Stop: 07/06/18 02:29 Last Admin: 07/06/18 02:12 Dose: 100 mls/hr Lactated Ringer's (Ringers, Lactated) 500 mls @ 1,000 mls/hr IV ASDIRECTED ONE Stop: 07/05/18 15:41 Last Admin: 07/05/18 15:40 Dose: 1,000 mls/hr Lactated Ringer's (Ringers, Lactated) 500 mls @ 500 mls/hr IV ASDIRECTED [facility] Stop: 07/05/18 22:30 Last Admin: 07/05/18 21:35 Dose: 500 mls/hr Lactated Ringer's (Ringers, Lactated) 500 mls @ 500 mls/hr IV ONETIME ONE Stop: 07/06/18 05:21 Last Admin: 07/06/18 04:39 Dose: 500 mls/hr Lactated Ringer's (Ringers, Lactated) 500 mls @ 500 mls/hr IV .BOLUS ONE Stop: 07/06/18 12:44 Last Admin: 07/06/18 11:49 Dose: 500 mls/hr Iohexol (Omnipaque-300) 50 ml PO .ASDIRECTED [facility] Stop: 07/06/18 02:19 Last Admin: 07/06/18 02:23 Dose: 50 ml Meropenem (Merrem) Confirm Administered Dose 500 mg .ROUTE .STK-MED ONE Stop: 07/05/18 06:39 Last Admin: 07/05/18 08:15 Dose: 500 mg Metoprolol Succinate (Toprol Xl) 37.5 mg PO BEDTIME [facility] Metoprolol Succinate (Toprol Xl) 12.5 mg PO ONETIME ONE Stop: 07/05/18 21:26 Last Admin: 07/05/18 21:40 Dose: 12.5 mg Metoprolol Succinate (Toprol Xl) 12.5 mg PO ONETIME [facility] Stop: 07/06/18 21:28 Last Admin: 07/06/18 21:34 Dose: 12.5 mg Neostigmine Methylsulfate (Neostigmine) Confirm Administered Dose 5 mg .ROUTE .STK-MED ONE Stop: 07/05/18 07:10 Ondansetron HCl (Zofran) Confirm Administered Dose 4 mg .ROUTE .STK-MED ONE Stop: 07/05/18 07:10 Pantoprazole Sodium (Protonix Iv) 40 mg IVPUSH Q24H [facility] Last Admin: 07/06/18 11:17 Dose: 40 mg Propofol (Diprivan 20 Ml) Confirm Administered Dose 200 mg .ROUTE .STK-MED ONE Stop: 07/05/18 07:10 Rocuronium [place] (Zemuron) Confirm Administered Dose 50 mg .ROUTE .STK-MED ONE Stop: 07/05/18 07:10 Scopolamine (Transderm-Scop) 1.5 mg TRDERM Q72H [facility] Stop: 07/07/18 10:00 Last Admin: 07/05/18 05:53 Dose: 1.5 mg Succinylcholine Chloride (Quelicin) Confirm Administered Dose 200 mg .ROUTE .STK -MED ONE Stop: 07/05/18 07:10 Warfarin Sodium (Coumadin) 10 mg PO ONETIME ONE Stop: 07/05/18 12:01 Last Admin: 07/05/18 11:42 Dose: 10 mg Warfarin Sodium (Coumadin) 10 mg PO ONETIME ONE Stop: 07/06/18 13:01 Last Admin: 07/06/18 13:15 Dose: 10 mg - Exam Wound/Incisions: Healing Well, No Drainage Quality Assessment: Urine Catheter, DVT Prophylaxis. No: Supplemental Oxygen, Central Line/PICC General: Alert, Oriented, Cooperative, No Acute Distress HEENT: Pupils Equal. No: Pupils Reactive (Pupils minimally reactive to light) Lungs: Clear to Auscultation, Normal Respiratory Effort Cardiovascular: Regular Rate, Irregular Rhythm GI/Abdominal Exam: Normal Bowel Sounds, Soft, No Distention, Tender Extremities: No Pedal Edema Neurological: Normal Speech, Normal Tone, Strength Equal Bilateral, Cranial Nerves Intact Psy/Mental Status: Alert, Normal Affect, Normal Mood - Problem List & Annotations (1) Status post small bowel resection SNOMED Code(s): 355595349732241, 652496081, [id number] Code(s): Z90.49 - ACQUIRED ABSENCE OF OTHER SPECIFIED PARTS OF DIGESTIVE TRACT Status: Acute Current Visit: Yes - Problem List Review Problem List Initiated/Reviewed/Updated: Yes - My Orders Last 24 Hours: Active Orders 24 hr Category Date Time Status DC Ruggiero Catheter [Urinary Catheter Removal] [RC] Per Care 07/07/18 07:37 Active Unit Routine May Shower [RC] ASDIRECTED Care 07/06/18 08:29 Active Notify Provider Consults [RC] ASDIRECTED Care 07/07/18 07:37 Active Consult to Physician [CONS] Routine Cons 07/07/18 07:37 Ordered Bariatric Diet [DIET] Diet 07/06/18 Breakfast Active CXR [Chest 1V Frontal] [CR] Routine Exams 07/07/18 08:33 Ordered Head w wo Cont [CT] Routine Exams 07/07/18 08:00 Ordered CBC WITH AUTO DIFF [HEME] Routine Lab 07/08/18 04:00 Ordered COMPREHENSIVE METABOLIC PN,CMP [CHEM] Routine Lab 07/08/18 04:00 Ordered INR,PT,PROTHROMBIN TIME [COAG] DAILY Lab 07/08/18 04:00 Ordered INR,PT,PROTHROMBIN TIME [COAG] DAILY Lab 07/09/18 04:00 Ordered INR,PT,PROTHROMBIN TIME [COAG] DAILY Lab 07/10/18 04:00 Ordered INR,PT,PROTHROMBIN TIME [COAG] DAILY Lab 07/11/18 04:00 Ordered PHOSPHORUS [CHEM] Routine Lab 07/08/18 04:00 Ordered Acetaminophen [Tylenol] Med 07/07/18 03:45 Active 650 mg PO Q4H PRN Celecoxib [CeleBREX] Med 07/06/18 08:00 Active 200 mg PO DAILY@0800 Cyanocobalamin (Vitamin B12) [Vitamin B12] Med 07/07/18 09:00 Once 1,000 mcg IM ONETIME ONE Dextrose 5%-Lactated Ringers 1,000 ml Med 07/06/18 08:27 Active IV ASDIRECTED Escitalopram [Lexapro] Med 07/06/18 09:00 Active 20 mg PO DAILY HYDROmorphone [Dilaudid] Med 07/06/18 08:28 Active 2 - 4 mg PO Q4H PRN Magnesium Sulfate/Water [Magnesium Sulfate in Water Med 07/06/18 10:00 Active Premix] 2 gm Premix Bag 1 bag IV Q6H Metoprolol Succinate [Toprol XL] Med 07/06/18 21:00 Hold 37.5 mg PO BEDTIME Pantoprazole [ProTONIX Granules] Med 07/07/18 07:30 Active 40 mg PO ACBREAKFAST Potassium Phosphates 22.5 mmole Med 07/07/18 10:00 Active Sodium Chloride 0.9% [Normal Saline] 250 ml IV Q3H Remove Patch Med 07/07/18 10:00 Once 1 ea TRDERM ONETIME ONE diphenhydrAMINE [Benadryl] Med 07/06/18 08:26 Active 25 mg PO BEDTIME PRN Isolation [COMM] Stat Oth 07/06/18 23:09 Ordered Oral Care [OM.PC] BID Oth 07/06/18 09:45 Ordered Medication Orders Acetaminophen (Tylenol) 650 mg PO Q4H PRN PRN Reason: fever/pain Last Admin: 07/07/18 04:07 Dose: 650 mg Celecoxib (Celebrex) 200 mg PO DAILY@0800 [facility] Last Admin: 07/07/18 07:46 Dose: 200 mg Admin: 07/06/18 07:17 Dose: 200 mg Cyanocobalamin (Vitamin B12) 1,000 mcg IM ONETIME ONE Stop: 07/07/18 09:01 Diphenhydramine HCl (Benadryl) 50 mg IVPUSH Q4H PRN PRN Reason: ITCHING Diphenhydramine HCl (Benadryl) 25 mg PO BEDTIME PRN PRN Reason: Sleep Escitalopram Oxalate (Lexapro) 20 mg PO DAILY [facility] Last Admin: 07/06/18 08:53 Dose: 20 mg Heparin Sodium (Porcine) (Heparin Sodium) 5,000 units SUBCUT Q12H [facility] Last Admin: 07/07/18 04:07 Dose: 5,000 units Admin: 07/06/18 15:31 Dose: 5,000 units Admin: 07/06/18 03:04 Dose: 5,000 units Admin: 07/05/18 16:06 Dose: 5,000 units Hydromorphone HCl (Dilaudid) 2 - 4 mg PO Q4H PRN PRN Reason: Pain Hydroxyzine HCl (Vistaril) 100 mg IM Q4H PRN PRN Reason: pain Last Admin: 07/06/18 19:41 Dose: 100 mg Multivitamins/Minerals 10 ml/Thiamine HCl 200 mg/ Chromium/Copper/Manganese/ Seleni/Zn 1 ml/ Dextrose/Lactated Ringer's 1,013 mls @ 100 mls/hr IV DAILY@ 1600 [facility] Last Admin: 07/06/18 15:31 Dose: 100 mls/hr Admin: 07/05/18 16:13 Dose: 175 mls/hr Magnesium Sulfate 2 gm/ Premix 50 mls @ 25 mls/hr IV Q6H [facility] Stop: 07/09/18 05:59 Last Admin: 07/07/18 04:07 Dose: 25 mls/hr Infusion: 07/06/18 23:17 Dose: 25 mls/hr Admin: 07/06/18 21:17 Dose: 25 mls/hr Infusion: 07/06/18 17:32 Dose: 25 mls/hr Admin: 07/06/18 15:32 Dose: 25 mls/hr Infusion: 07/06/18 11:04 Dose: 25 mls/hr Admin: 07/06/18 09:04 Dose: 25 mls/hr Dextrose/Lactated Ringer's (Dextrose 5%-Lactated Ringers) 1,000 mls @ 100 mls/ hr IV ASDIRECTED [facility] Last Admin: 07/07/18 01:52 Dose: 100 mls/hr Potassium Phosphate 22.5 mmole (/ Sodium Chloride) 257.5 mls @ 86 mls/hr IV Q3H [facility] Stop: 07/07/18 15:59 Labetalol HCl (Normodyne) 5 mg IVPUSH Q5M PRN PRN Reason: SBP over 160 OR DBP over 95 Metoclopramide HCl (Reglan) 10 mg IVPUSH Q6H PRN PRN Reason: NAUSEA NOT CONTROL BY ZOFRAN Metoprolol Succinate (Toprol Xl) 37.5 mg PO BEDTIME [facility] Last Admin: 07/06/18 21:29 Dose: Miscellaneous Information (Remove Patch) 1 ea TRDERM ONETIME ONE Stop: 07/07/18 10:01 Naloxone HCl (Narcan) 0.1 mg IV ASDIRECTED PRN PRN Reason: decreased respiratory rate Scopolamine Patch (Check) 1 each TOP DAILY [facility] Stop: 07/07/18 09:48 Last Admin: 07/06/18 08:53 Dose: Ondansetron HCl (Zofran) 4 mg IVPUSH Q4H PRN PRN Reason: Nausea/Vomiting Pantoprazole Sodium (Protonix Granules) 40 mg PO ACBREAKFAST [facility] Last Admin: 07/07/18 07:46 Dose: 40 mg Tamsulosin HCl (Flomax) 0.4 mg PO BEDTIME [facility] Last Admin: 07/06/18 21:17 Dose: 0.4 mg Admin: 07/05/18 20:36 Dose: 0.4 mg Admin: 07/05/18 11:42 Dose: 0.4 mg - Assessment Assessment (Free Text/Narrative):: Prem Victor is a 78 yo male 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 During his stay he has had consistently low BP post surgery. It remains low around the upper 90s systolic and 50 diastolic; most recent 99/56. He is still experiencing some dizziness and lightheadedness. He is a bit more fatigued today and is dozing off in his chair. He is diaphoretic on exam, complains of chills with fever up to 103 F, and liquid diarrhea. His urine is clean and he has a normal WBC (8.8). In addition the nurses state that he has had some confusion and altered mental status. He had a normal neuro exam for me this morning and was oriented x3. Normal head CT was obtained today. He denies any substance abuse. The surgery was clean, went well, and did not give us any reason to suspect this as the cause of his altered mental status and fever. - Plan Plan (Free Text/Narrative):: 1. Altered mental status -Head CT on 07/07/18 normal -recheck CMP in the AM 2. Low BP -Continue to encourage fluids -Up with assist 3. Fever -continue to build differential working with internal medicine -Tylenol 4. Hypophosphatemia -Potassium Phosphates 5. Post op -coumadin
[2018-07-07] MEDS ORDERED: Cyanocobalamin (Vitamin B12) 1,000 MCG/ML SDV IM ONE (09:00)
--- NOTE | 2018-07-07 09:15 | CRLCR ---
HISTORY: Fever. TECHNIQUE: Portable frontal view the chest. COMPARISON: None. FINDINGS: Left hemidiaphragm is mildly elevated. Mild left basilar atelectasis. No consolidation. No pleural effusion or pneumothorax. Cardiomediastinal silhouette is within normal limits for technique. IMPRESSION: Mild left basilar atelectasis. Dictated by Jonatan Mustafa MD @ Jul 07 2018 9:12AM Signed by Dr. Jonatan Mustafa @ Jul 07 2018 9:15AM
[2018-07-07] MEDS ORDERED: Sodium Chloride 0.9% 75 ML IV ONE (09:26)
[2018-07-07] MEDS ORDERED: Sodium Chloride 0.9% 10 ML Syringe FLUSH ONE (09:26)
[2018-07-07] MEDS ORDERED: Iopamidol 612 MG/ML 100 ML Bottle IV SCH (09:30)
[2018-07-07] MEDS: SCOPOLAMINE PATCH CHECK TOP SCH (09:57)
[2018-07-07] MEDS: Escitalopram 20 MG Tab PO SCH (09:58)
--- NOTE | 2018-07-07 10:52 | CRLCT ---
INDICATION: 78-year-old male. Confusion. TECHNIQUE: CT images were acquired from foramen magnum to vertex prior to and after infusion of iodinated contrast material. FINDINGS: The lateral 3rd and 4th ventricles are normal in size and shape. No evidence of acute intracranial hemorrhage. No mass effect. No enhancing intra-axial or extra-axial lesion. Preservation of short-white interface without evidence of recent infarction. No posterior fossa hemorrhage mass effect or enhancing lesion. The bony calvarium is unremarkable. IMPRESSION: Normal CT scan of the brain with and without contrast. Please note that all CT scans at this facility use dose modulation, iterative reconstruction, and/or weight-based dosing when appropriate to reduce radiation dose to as low as reasonably achievable. Dictated by Nelson Zavala MD @ Jul 07 2018 10:49AM Signed by Dr. Nelson Zavala @ Jul 07 2018 10:50AM
[2018-07-07] MEDS: Potassium Phosphates 22.5 MMOLE in Sodium Chloride 0.9% 250 ML IV SCH ×2 (12:22→16:04)
[2018-07-07] MEDS ORDERED: Warfarin 2.5 MG Tab PO ONE (13:00)
--- NOTE | 2018-07-07 13:57 | PCM.CONS ---
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 I was asked to see him today by Dr. Stallworth regarding confusion and fever. At the time of my evaluation the patient says that he feels well. He has very minimal abdominal pain which has been well-controlled. Overnight nursing staff noted difficulty with agitation and confusion though he did have periods of normal conversation. These symptoms have been present for approximately 24 hours before apparently resolving late this morning. He has not had a headache. He does not feel short of breath and has not been coughing. He has been passing gas and having liquid bowel movements. No complaints of muscle aches or muscle pains that are out of the ordinary. He did have a head CT this morning which was unremarkable. Chest x-ray was unremarkable. Symptoms all seem to have resolved after his scopolamine patch was removed this morning. Abdomen Pain Score (Numeric/FACES): 4 - Related Data Allergies/Adverse Reactions: Allergies Allergy/AdvReac Type Severity Reaction Status Date / Time No Known Allergies Allergy Verified 07/05/18 06:24 Home Medications: Home Meds Calcium Carbonate/Vitamin D3 [Calcium Carbonate/Vitamin D 1250 MG-200 Unit] 1 tab PO BID 05/01/13 [History] Cholecalciferol (Vitamin D3) [Vitamin D] 400 unit PO DAILY 05/01/13 [History] Cyanocobalamin (Vitamin B-12) [Vitamin B-12] 2,500 mcg SL DAILY 05/01/13 [ History] Escitalopram [Lexapro] 20 mg PO DAILY 05/01/13 [History] Ferrous Sulfate 324 mg PO DAILY 05/01/13 [History] Multivitamin with Minerals [Multiple Vitamin] 1 tab PO BID 05/01/13 [History] Vitamin B Complex [B Complex] 1 tab PO DAILY 06/03/16 [History] Lutein/Min/Vit C/Vit E Acetate [Ocuvite Lutein] 1 cap PO DAILY 06/05/16 [History ] Warfarin Sodium 5 mg PO .M,W,SAT 06/30/18 [History] Warfarin Sodium 7.5 mg PO .T,TH,SUN 06/30/18 [History] Metoprolol Succinate [Toprol XL] 37.5 mg PO DAILY 07/04/18 [History] diphenhydrAMINE HCl [Benadryl Allergy] 25 mg PO BEDTIME PRN 07/05/18 [History] Past Medical History HEENT History: Reports: None Cardiovascular History: Reports: Afib Respiratory History: Reports: None Gastrointestinal History: Reports: Bowel Obstruction Genitourinary History: Reports: Prostate Disorder Musculoskeletal History: Reports: None Neurological History: Reports: None Psychiatric History: Reports: Depression Endocrine/Metabolic History: Reports: None, Diabetes, Type II, Other (See Below) Other Endocrine/Metabolic History: went away after r n y Hematologic History: Reports: None Immunologic History: Reports: None Oncologic (Cancer) History: Reports: Prostate Dermatologic History: Reports: None - Infectious Disease History Infectious Disease History: Reports: Chicken Pox - Past Surgical History Head Surgeries/Procedures: Reports: None HEENT Surgical History: Reports: Cataract Surgery GI Surgical History: Reports: Bariatric Procedure, Colonoscopy, EGD Male Surgical History: Reports: TURP-Transurethral Resection of Prostate Musculoskeletal Surgical History: Reports: None Oncologic Surgical History: Reports: None Dermatological Surgical History: Reports: None Social & Family History - Family History Family Medical History: Noncontributory - Tobacco Use Smoking Status *Q: Former Smoker Used Tobacco, but Quit: Yes Month/Year Tobacco Last Used: many years ago - Caffeine Use Caffeine Use: Reports: Coffee - Recreational Drug Use Recreational Drug Use: No H&P Review of Systems - Review of Systems: Review Of Systems: See Below Free Text/Narrative: A complete 12 point review of systems was obtained. Pertinent positives and negatives are noted in the history of present illness. All other systems were reviewed and were negative except as noted. Exam - Exam Exam: See Below - Vital Signs Vital Signs: Last Vital Signs Temp 36.6 C 07/07/18 11:00 Pulse 82 07/07/18 11:00 Resp 16 07/07/18 11:00 BP 99/56 L 07/07/18 11:00 Pulse Ox 96 07/07/18 11:00 Weight: 80.104 kg - Exam Quality Assessment: No: Supplemental Oxygen General: Alert, Oriented, Cooperative. No: Mild Distress HEENT: Conjunctiva Clear, Mucosa Moist & [place]. No: Scleral Icterus Neck: Supple, Trachea Midline Lungs: Clear to Auscultation, Normal Respiratory Effort Cardiovascular: Regular Rate, Regular Rhythm. No: Systolic Murmur GI/Abdominal Exam: Normal Bowel Sounds, Soft, No Distention Extremities: No Pedal Edema. No: Increased Warmth Peripheral Pulses: 2+: Dorsalis Pedis (L), Dorsalis Pedis (R) Skin: Warm, Dry Neuro Extensive - Mental Status: Alert, Oriented x3, Nl Response to Commands Neuro Extensive - Motor, Sensory, Reflexes: No: Dysarthria, Abnormal Motor, Tremor Psychiatric: Alert, Normal Affect - Patient Data Lab Results Last 24 hrs: Laboratory Results - last 24 hr 07/07/18 07/07/18 07/07/18 Range/Units 02:48 03:16 03:16 WBC 8.8 (4.5-11.0) K/uL RBC 3.70 L (4.30-5.90) M/uL Hgb 11.4 L (12.0-15.0) g/dL Hct 35.8 L (40.0-54.0) % MCV 97 (80-98) fL MCH 31 (27-31) pg MCHC 32 (32-36) % Plt Count 182 (150-400) K/uL PT 12.9 H (9.5-12.0) sec INR 1.18 (0.80-1.20) Sodium (140-148) mmol/L Potassium (3.6-5.2) mmol/L Chloride (100-108) mmol/L Carbon Dioxide (21-32) mmol/L Anion Gap (5.0-14.0) mmol/L BUN (7-18) mg/dL Creatinine (0.8-1.3) mg/dL Est Cr Clr Drug Dosing mL/min Estimated GFR (MDRD) (>60) Glucose (74-106) mg/dL Calcium (8.5-10.1) mg/dL Phosphorus (2.5-4.9) mg/dL Magnesium (1.8-2.4) mg/dL Total Bilirubin (0.2-1.0) mg/dL AST (15-37) U/L ALT (12-78) U/L Alkaline Phosphatase (46-116) U/L Total Protein (6.4-8.2) g/dL Albumin (3.4-5.0) g/dL Globulin (2.3-3.5) g/dL Albumin/Globulin Ratio (1.2-2.2) Urine Color Yellow Urine Appearance Slightly cloudy Urine pH 5.0 (4.5-8.0) Ur Specific [place] 1.020 (1.008-1.030) Urine Protein Trace (NEGATIVE) mg/dL Urine Glucose (UA) Normal (NEGATIVE) mg/dL Urine Ketones Negative (NEGATIVE) mg/dL Urine Occult Blood Large (NEGATIVE) Urine Nitrite Negative (NEGAITVE) Urine Bilirubin Negative (NEGATIVE) Urine Urobilinogen Normal (NORMAL) mg/dL Ur Leukocyte Esterase Moderate (NEGATIVE) Urine RBC 10-20 H (0-5) Urine WBC 0-5 (0-5) Ur Epithelial Cells Rare Amorphous Sediment Not seen Urine Bacteria Few Urine Mucus Few 07/07/18 Range/Units 03:16 WBC (4.5-11.0) K/uL RBC (4.30-5.90) M/uL Hgb (12.0-15.0) g/dL Hct (40.0-54.0) % MCV (80-98) fL MCH (27-31) pg MCHC (32-36) % Plt Count (150-400) K/uL PT (9.5-12.0) sec INR (0.80-1.20) Sodium 137 L (140-148) mmol/L Potassium 3.7 (3.6-5.2) mmol/L Chloride 102 (100-108) mmol/L Carbon Dioxide 29 (21-32) mmol/L Anion Gap 9.7 (5.0-14.0) mmol/L BUN 11 (7-18) mg/dL Creatinine 1.1 (0.8-1.3) mg/dL Est Cr Clr Drug Dosing 56.94 mL/min Estimated GFR (MDRD) > 60 (>60) Glucose 115 H (74-106) mg/dL Calcium 8.2 L (8.5-10.1) mg/dL Phosphorus 2.4 L (2.5-4.9) mg/dL Magnesium 2.1 (1.8-2.4) mg/dL Total Bilirubin 0.4 (0.2-1.0) mg/dL AST 38 H (15-37) U/L ALT 26 (12-78) U/L Alkaline Phosphatase 72 (46-116) U/L Total Protein 5.5 L (6.4-8.2) g/dL Albumin 2.7 L (3.4-5.0) g/dL Globulin 2.8 (2.3-3.5) g/dL Albumin/Globulin Ratio 1.0 L (1.2-2.2) Urine Color Urine Appearance Urine pH (4.5-8.0) Ur Specific [place] (1.008-1.030) Urine Protein (NEGATIVE) mg/dL Urine Glucose (UA) (NEGATIVE) mg/dL Urine Ketones (NEGATIVE) mg/dL Urine Occult Blood (NEGATIVE) Urine Nitrite (NEGAITVE) Urine Bilirubin (NEGATIVE) Urine Urobilinogen (NORMAL) mg/dL Ur Leukocyte Esterase (NEGATIVE) Urine RBC (0-5) Urine WBC (0-5) Ur Epithelial Cells Amorphous Sediment Urine Bacteria Urine Mucus Result Diagrams: 07/07/18 03:16 07/07/18 03:16 Rios Results Last 24 hrs: Microbiology 07/07/18 00:45 Clostridioides difficile (PCR) - Final Stool / Feces NEGATIVE CDIFF TOXIN Imaging Impressions Last 24 hrs: Head CT - images personally reviewed - normal head CT with no evidence for bleed , mass or intracranial abnormality. Brain size is normal. Chest x-ray - images also personally reviewed - no evidence for mass, infiltrate or effusion. Consult PN Assessment/Plan Procedures: Procedures CULTURE SCREEN ONLY (06/05/16) EGD BIOPSY SINGLE/MULTIPLE (06/05/16) EGD REMOVE FOREIGN BODY (05/01/13) (1) Hyperactive delirium after surgical procedure SNOMED Code(s): 663536810 Code(s): F05 - DELIRIUM DUE TO KNOWN PHYSIOLOGICAL CONDITION Current Visit : Yes Problem List Initiated/Reviewed/Updated: Yes My Orders Last 24 Hours: My Active Orders 07/07/18 13:57 Melatonin 9 mg PO BEDTIME PRN Plan: ASSESSMENT AND PLAN - Hyperactive delirium - I suspect this was related to his scopolamine patch with possible contribution from pain medications though they have been fairly minimal. Seems back to baseline at this time. There are no deficits and he is completely alert and oriented. He is steady on his feet. Strength is symmetric. Infectious workup has been unremarkable. -Avoid anti-cholinergics -Minimize narcotics -Melatonin at bedtime if needed for sleep Fever - atelectasis is suspected since this was noted on the chest x-ray. No other obvious source for infection. No significant abdominal pain. Urinalysis is clear. Chest x-ray was clear other than the atelectasis. Examination is benign at this time. -No indication for antibiotics at this point -Good pulmonary toilet Pastor Vega M.D. Requesting Provider: Dr. Stallworth Date Consult Requested: 07/07/18 Reason for Consult: Hyperactive delirium Patient History Reviewed: Yes Admission H&P Reviewed: Yes Notified Requestor: No Time Spent (in minutes): 45
[2018-07-07] MEDS: MVI, Adult with Vitamin K 10 ML, Thiamine 200 MG, Chromium/Copper/Mang/Selen/Zn 1 ML in... IV SCH ×4 (16:47)
[2018-07-07] MEDS: Tamsulosin 0.4 MG Cap.ER PO SCH (20:34)
[2018-07-07] MEDS ORDERED: Metoprolol Succinate 25 MG Tab.ER PO ONE (20:52)
[2018-07-07] MEDS: Metoprolol Succinate 25 MG Tab.ER PO SCH (21:02)
[2018-07-08] MEDS: Melatonin 3 MG Tab PO PRN ×2 (00:05→21:12)
[2018-07-08] MEDS: Magnesium Sulfate/Water 2 GM in Premix Bag 1 BAG IV SCH ×4 (04:06→21:14)
[2018-07-08] MEDS: Heparin Sodium 5,000 Units/ML Vial SUBCUT SCH ×2 (04:18→16:51)
[2018-07-08] MEDS: Acetaminophen Soln 650 MG/20.3 ML UD Cup PO PRN ×2 (04:21→21:12)
[2018-07-08] MEDS: Celecoxib 200 MG Cap PO SCH (07:50)
[2018-07-08] MEDS: Pantoprazole 40 MG Delayed-Release Granules 1 Packet PO SCH (07:50)
[2018-07-08] MEDS: Escitalopram 20 MG Tab PO SCH (08:00)
[2018-07-08] MEDS ORDERED: Sodium Chloride 0.9% 10 ML Syringe IV PRN (08:04)
--- NOTE | 2018-07-08 12:07 | PCM.SURGPN ---
- General Info Date of Service: 07/08/18 Date of Surgery/Procedure: 07/05/18 POD#: 3 Functional Status: Reports: Pain Controlled, Tolerating Diet, Ambulating, Urinating - Review of Systems General: Reports: No Symptoms HEENT: Reports: No Symptoms Pulmonary: Reports: No Symptoms Cardiovascular: Reports: No Symptoms Gastrointestinal: Reports: Diarrhea. Denies: Abdominal Pain, Nausea, Vomiting Genitourinary: Reports: No Symptoms Psychiatric: Reports: No Symptoms - Patient Data Vitals - Most Recent: Last Vital Signs Temp 36.2 C 07/08/18 10:40 Pulse 72 07/08/18 10:40 Resp 18 07/08/18 10:40 BP 111/75 07/08/18 10:40 Pulse Ox 95 07/08/18 10:40 Weight - Most Recent: 80.104 kg I&O - Last 24 Hours: Intake & Output 07/07/18 07/08/18 07/08/18 22:59 06:59 14:59 Intake Total 1243 1403 50 Balance 1243 1403 50 Lab Results Last 24 Hrs: Laboratory Results - last 24 hr 07/08/18 07/08/18 07/08/18 Range/Units 03:53 03:53 03:53 WBC 7.7 (4.5-11.0) K/uL RBC 3.34 L (4.30-5.90) M/uL Hgb 10.2 L (12.0-15.0) g/dL Hct 32.3 L (40.0-54.0) % MCV 97 (80-98) fL MCH 31 (27-31) pg MCHC 32 (32-36) % Plt Count 166 (150-400) K/uL Neut % (Auto) 69 H (36-66) % Lymph % (Auto) 16 L (24-44) % [place] % (Auto) 9 H (2-6) % Eos % (Auto) 5 H (2-4) % Baso % (Auto) 0 (0-1) % PT 13.7 H (9.5-12.0) sec INR 1.26 H (0.80-1.20) Sodium 143 (140-148) mmol/L Potassium 3.8 (3.6-5.2) mmol/L Chloride 109 H (100-108) mmol/L Carbon Dioxide 27 (21-32) mmol/L Anion Gap 10.8 (5.0-14.0) mmol/L BUN 9 (7-18) mg/dL Creatinine 0.8 (0.8-1.3) mg/dL Est Cr Clr Drug Dosing 78.29 mL/min Estimated GFR (MDRD) > 60 (>60) Glucose 107 H (74-106) mg/dL Calcium 8.0 L (8.5-10.1) mg/dL Phosphorus 2.8 (2.5-4.9) mg/dL Total Bilirubin 0.4 (0.2-1.0) mg/dL AST 36 (15-37) U/L ALT 28 (12-78) U/L Alkaline Phosphatase 61 (46-116) U/L Total Protein 4.9 L (6.4-8.2) g/dL Albumin 2.3 L (3.4-5.0) g/dL Globulin 2.6 (2.3-3.5) g/dL Albumin/Globulin Ratio 0.9 L (1.2-2.2) Med Orders - Current: Current Medications Acetaminophen (Tylenol) 650 mg PO Q4H PRN PRN Reason: fever/pain Last Admin: 07/08/18 04:21 Dose: 650 mg Celecoxib (Celebrex) 200 mg PO DAILY@0800 [facility] Last Admin: 07/08/18 07:50 Dose: 200 mg Escitalopram Oxalate (Lexapro) 20 mg PO DAILY [facility] [place] Last Admin: 07/08/18 08:00 Dose: 20 mg Heparin Sodium (Porcine) (Heparin Sodium) 5,000 units SUBCUT Q12H [facility] [place] Last Admin: 07/08/18 04:18 Dose: 5,000 units Hydromorphone HCl (Dilaudid) 2 - 4 mg PO Q4H PRN PRN Reason: Pain Hydroxyzine HCl (Vistaril) 100 mg IM Q4H PRN PRN Reason: pain Last Admin: 07/06/18 19:41 Dose: 100 mg Magnesium Sulfate 2 gm/ Premix 50 mls @ 25 mls/hr IV Q6H [facility] Stop: 07/09/18 05:59 Last Admin: 07/08/18 09:42 Dose: 25 mls/hr Labetalol HCl (Normodyne) 5 mg IVPUSH Q5M PRN PRN Reason: SBP over 160 OR DBP over 95 Melatonin (Melatonin) 9 mg PO BEDTIME PRN PRN Reason: Sleep Last Admin: 07/08/18 00:05 Dose: 9 mg Metoclopramide HCl (Reglan) 10 mg IVPUSH Q6H PRN PRN Reason: NAUSEA NOT CONTROL BY ZOFRAN Metoprolol Succinate (Toprol Xl) 37.5 mg PO BEDTIME [facility] [place] Last Admin: 07/07/18 21:02 Dose: Not Given Ondansetron HCl (Zofran) 4 mg IVPUSH Q4H PRN PRN Reason: Nausea/Vomiting Pantoprazole Sodium (Protonix Granules) 40 mg PO ACBREAKFAST [facility] Last Admin: 07/08/18 07:50 Dose: 40 mg Sodium Chloride (Saline Flush) 10 ml IV ASDIRECTED PRN PRN Reason: LADLE PULLER Tamsulosin HCl (Flomax) 0.4 mg PO BEDTIME [facility] Last Admin: 07/07/18 20:34 Dose: 0.4 mg Warfarin Sodium (Coumadin) 10 mg PO ONETIME ONE Stop: 07/08/18 13:01 Discontinued Medications Acetaminophen (Tylenol Extra Strength) 1,000 mg PO ONETIME ONE Stop: 07/05/18 05:46 Last Admin: 07/05/18 05:54 Dose: 1,000 mg Acetaminophen (Tylenol) 650 mg PO Q6H [facility] [place] Last Admin: 07/06/18 23:35 Dose: 650 mg Bupivacaine HCl/Epinephrine Bitart (Marcaine 0.5%/Epinephrine 1:200,000) Confirm Administered Dose 50 ml .ROUTE .STK-MED ONE Stop: 07/05/18 08:22 Last Admin: 07/05/18 08:31 Dose: 30 ml Ropivacaine 40 ml/Dexamethasone 8 mg/Epinephrine HCl 0.4 mg/ Sodium Chloride 37.6 ml 0 ml NERVRT ASDIRECTED [facility] [place] Last Admin: 07/05/18 07:49 Dose: 80 syringe Cyanocobalamin (Vitamin B12) 1,000 mcg IM ONETIME ONE Stop: 07/07/18 09:01 Last Admin: 07/07/18 09:57 Dose: 1,000 mcg Dexamethasone (Dexamethasone) Confirm Administered Dose 4 mg .ROUTE .STK-MED ONE Stop: 07/05/18 07:10 Diphenhydramine HCl (Benadryl) 50 mg IVPUSH Q4H PRN PRN Reason: ITCHING Diphenhydramine HCl (Benadryl) 25 mg PO BEDTIME PRN PRN Reason: Sleep Fentanyl (Sublimaze) Confirm Administered Dose 250 mcg .ROUTE .[facility] ONE Stop: 07/05/18 07:10 Fentanyl (Sublimaze) Confirm Administered Dose 250 mcg .ROUTE .[facility] ONE Stop: 07/05/18 07:28 Gabapentin (Neurontin) 300 mg PO TID [facility] [place] Last Admin: 07/06/18 14:53 Dose: 300 mg Glycopyrrolate (Robinul) Confirm Administered Dose 1 mg .ROUTE .[facility] ONE Stop: 07/05/18 07:10 Hydromorphone HCl (Dilaudid Professor Of Pathology 15 Mg In Ns 30 Ml) 0 mg IV ASDIRECTED PRN; Protocol PRN Reason: Pain Last Admin: 07/05/18 07:44 Dose: 0.3 mg Hydroxyzine HCl (Vistaril) 75 mg IM ONETIME ONE Stop: 07/05/18 09:07 Last Admin: 07/05/18 09:10 Dose: 75 mg Dextrose/Lactated Ringer's (Dextrose 5%-Lactated Ringers) 1,000 mls @ 100 mls/ hr IV ASDIRECTED [facility] [place] Last Admin: 07/05/18 05:53 Dose: 100 mls/hr Cefoxitin Sodium 2 gm/ Sodium (Chloride) 50 mls @ 100 mls/hr IV ONETIME ONE Stop: 07/05/18 07:29 Last Admin: 07/05/18 07:48 Dose: 100 mls/hr Linezolid (Zyvox) Confirm Administered Dose 300 mls @ as directed .ROUTE .[facility] ONE Stop: 07/05/18 06:39 Lactated Ringer's (Ringers, Lactated) Confirm Administered Dose 1,000 mls @ as directed .ROUTE .[facility] ONE Stop: 07/05/18 07:54 Dextrose/Lactated Ringer's (Dextrose 5%-Lactated Ringers) 1,000 mls @ 175 mls/ hr IV ASDIRECTED [facility] Last Admin: 07/06/18 07:12 Dose: 175 mls/hr Multivitamins/Minerals 10 ml/Thiamine HCl 200 mg/ Chromium/Copper/Manganese/ Seleni/Zn 1 ml/ Dextrose/Lactated Ringer's 1,013 mls @ 100 mls/hr IV DAILY@ 1600 [facility] Last Admin: 07/07/18 16:47 Dose: 100 mls/hr Cefoxitin Sodium 2 gm/ Sodium (Chloride) 50 mls @ 100 mls/hr IV Q6H [facility] Stop: 07/06/18 02:29 Last Admin: 07/06/18 02:12 Dose: 100 mls/hr Lactated Ringer's (Ringers, Lactated) 500 mls @ 1,000 mls/hr IV ASDIRECTED ONE Stop: 07/05/18 15:41 Last Admin: 07/05/18 15:40 Dose: 1,000 mls/hr Lactated Ringer's (Ringers, Lactated) 500 mls @ 500 mls/hr IV ASDIRECTED [facility] Stop: 07/05/18 22:30 Last Admin: 07/05/18 21:35 Dose: 500 mls/hr Lactated Ringer's (Ringers, Lactated) 500 mls @ 500 mls/hr IV ONETIME ONE Stop: 07/06/18 05:21 Last Admin: 07/06/18 04:39 Dose: 500 mls/hr Dextrose/Lactated Ringer's (Dextrose 5%-Lactated Ringers) 1,000 mls @ 60 mls/ hr IV ASDIRECTED [facility] [place] Last Admin: 07/07/18 23:02 Dose: 100 mls/hr Lactated Ringer's (Ringers, Lactated) 500 mls @ 500 mls/hr IV .BOLUS ONE Stop: 07/06/18 12:44 Last Admin: 07/06/18 11:49 Dose: 500 mls/hr Potassium Phosphate 22.5 mmole (/ Sodium Chloride) 257.5 mls @ 86 mls/hr IV Q3H [facility] Stop: 07/07/18 15:59 Last Admin: 07/07/18 16:04 Dose: 86 mls/hr Sodium Chloride (Normal Saline) 75 mls @ 3.5 mls/sec IV ONETIME ONE Stop: 07/07/18 09:27 Last Admin: 07/07/18 09:47 Dose: 2 mls/sec Iohexol (Omnipaque-300) 50 ml PO .ASDIRECTED [facility] Stop: 07/06/18 02:19 Last Admin: 07/06/18 02:23 Dose: 50 ml Iopamidol (Isovue-300 (61%)) 100 ml IV . DIRECTED [facility] Stop: 07/07/18 18:00 Last Admin: 07/07/18 09:46 Dose: 100 ml Meropenem (Merrem) Confirm Administered Dose 500 mg .ROUTE .STK-MED ONE Stop: 07/05/18 06:39 Last Admin: 07/05/18 08:15 Dose: 500 mg Metoprolol Succinate (Toprol Xl) 37.5 mg PO BEDTIME [facility] Metoprolol Succinate (Toprol Xl) 12.5 mg PO ONETIME ONE Stop: 07/05/18 21:26 Last Admin: 07/05/18 21:40 Dose: 12.5 mg Metoprolol Succinate (Toprol Xl) 12.5 mg PO ONETIME STA Stop: 07/06/18 21:28 Last Admin: 07/06/18 21:34 Dose: 12.5 mg Metoprolol Succinate (Toprol Xl) 25 mg PO ONETIME ONE Stop: 07/07/18 20:53 Last Admin: 07/07/18 21:00 Dose: 25 mg Miscellaneous Information (Remove Patch) 1 ea TRDERM ONETIME ONE Stop: 07/07/18 10:01 Last Admin: 07/07/18 09:58 Dose: Not Given Naloxone HCl (Narcan) 0.1 mg IV ASDIRECTED PRN PRN Reason: decreased respiratory rate Neostigmine Methylsulfate (Neostigmine) Confirm Administered Dose 5 mg .ROUTE .STK-MED ONE Stop: 07/05/18 07:10 Scopolamine Patch (Check) 1 each TOP DAILY [facility] Stop: 07/07/18 09:48 Last Admin: 07/07/18 09:57 Dose: Not Given Ondansetron HCl (Zofran) Confirm Administered Dose 4 mg .ROUTE .STK-MED ONE Stop: 07/05/18 07:10 Pantoprazole Sodium (Protonix Iv) 40 mg IVPUSH Q24H [facility] [place] Last Admin: 07/06/18 11:17 Dose: 40 mg Propofol (Diprivan 20 Ml) Confirm Administered Dose 200 mg .ROUTE .STK-MED ONE Stop: 07/05/18 07:10 Rocuronium [place] (Zemuron) Confirm Administered Dose 50 mg .ROUTE .STK-MED ONE Stop: 07/05/18 07:10 Scopolamine (Transderm-Scop) 1.5 mg TRDERM Q72H [facility] Stop: 07/07/18 10:00 Last Admin: 07/05/18 05:53 Dose: 1.5 mg Sodium Chloride (Saline Flush) 10 ml FLUSH ONETIME ONE Stop: 07/07/18 09:27 Last Admin: 07/07/18 09:46 Dose: 10 ml Succinylcholine Chloride (Quelicin) Confirm Administered Dose 200 mg .ROUTE .STK -MED ONE Stop: 07/05/18 07:10 Warfarin Sodium (Coumadin) 10 mg PO ONETIME ONE Stop: 07/05/18 12:01 Last Admin: 07/05/18 11:42 Dose: 10 mg Warfarin Sodium (Coumadin) 10 mg PO ONETIME ONE Stop: 07/06/18 13:01 Last Admin: 07/06/18 13:15 Dose: 10 mg Warfarin Sodium (Coumadin) 7.5 mg PO ONETIME ONE Stop: 07/07/18 13:01 Last Admin: 07/07/18 12:26 Dose: 7.5 mg - Exam Wound/Incisions: Healing Well General: Alert, Oriented, Cooperative, No Acute Distress Lungs: Clear to Auscultation, Normal Respiratory Effort Cardiovascular: Regular Rate, Irregular Rhythm GI/Abdominal Exam: Normal Bowel Sounds, Non-Tender Psy/Mental Status: Alert (No longer experiencing altered mental status. Much more alert than yesterday.), Normal Affect, Normal Mood - Problem List Review Problem List Initiated/Reviewed/Updated: Yes - My Orders Last 24 Hours: Active Orders 24 hr Category Date Time Status May Shower [RC] ASDIRECTED Care 07/08/18 08:08 Active INR,PT,PROTHROMBIN TIME [COAG] DAILY Lab 07/09/18 04:00 Ordered INR,PT,PROTHROMBIN TIME [COAG] DAILY Lab 07/10/18 04:00 Ordered INR,PT,PROTHROMBIN TIME [COAG] DAILY Lab 07/11/18 04:00 Ordered Melatonin Med 07/07/18 13:57 Active 9 mg PO BEDTIME PRN Sodium Chloride 0.9% [Saline Flush] Med 07/08/18 08:04 Active 10 ml IV ASDIRECTED PRN Warfarin [Coumadin] Med 07/08/18 13:00 Once 10 mg PO ONETIME ONE Medication Orders Acetaminophen (Tylenol) 650 mg PO Q4H PRN PRN Reason: fever/pain Last Admin: 07/08/18 04:21 Dose: 650 mg Admin: 07/07/18 16:50 Dose: 650 mg Admin: 07/07/18 10:07 Dose: 650 mg Admin: 07/07/18 04:07 Dose: 650 mg Celecoxib (Celebrex) 200 mg PO DAILY@0800 [facility] Last Admin: 07/08/18 07:50 Dose: 200 mg Admin: 07/07/18 07:46 Dose: 200 mg Admin: 07/06/18 07:17 Dose: 200 mg Escitalopram Oxalate (Lexapro) 20 mg PO DAILY [facility] [place] [place] Last Admin: 07/08/18 08:00 Dose: 20 mg Admin: 07/07/18 09:58 Dose: 20 mg Admin: 07/06/18 08:53 Dose: 20 mg Heparin Sodium (Porcine) (Heparin Sodium) 5,000 units SUBCUT Q12H [facility] Last Admin: 07/08/18 04:18 Dose: 5,000 units Admin: 07/07/18 16:48 Dose: 5,000 units Admin: 07/07/18 04:07 Dose: 5,000 units Admin: 07/06/18 15:31 Dose: 5,000 units Admin: 07/06/18 03:04 Dose: 5,000 units Admin: 07/05/18 16:06 Dose: 5,000 units Hydromorphone HCl (Dilaudid) 2 - 4 mg PO Q4H PRN PRN Reason: Pain Hydroxyzine HCl (Vistaril) 100 mg IM Q4H PRN PRN Reason: pain Last Admin: 07/06/18 19:41 Dose: 100 mg Magnesium Sulfate 2 gm/ Premix 50 mls @ 25 mls/hr IV Q6H [facility] Stop: 07/09/18 05:59 Last Admin: 07/08/18 09:42 Dose: 25 mls/hr Infusion: 07/08/18 06:06 Dose: 25 mls/hr Admin: 07/08/18 04:06 Dose: 25 mls/hr Infusion: 07/08/18 01:56 Dose: 25 mls/hr Admin: 07/07/18 23:56 Dose: 25 mls/hr Infusion: 07/07/18 22:29 Dose: 25 mls/hr Admin: 07/07/18 20:29 Dose: 25 mls/hr Infusion: 07/07/18 11:57 Dose: 25 mls/hr Admin: 07/07/18 09:57 Dose: 25 mls/hr Infusion: 07/07/18 06:07 Dose: 25 mls/hr Admin: 07/07/18 04:07 Dose: 25 mls/hr Infusion: 07/06/18 23:17 Dose: 25 mls/hr Admin: 07/06/18 21:17 Dose: 25 mls/hr Infusion: 07/06/18 17:32 Dose: 25 mls/hr Admin: 07/06/18 15:32 Dose: 25 mls/hr Infusion: 07/06/18 11:04 Dose: 25 mls/hr Admin: 07/06/18 09:04 Dose: 25 mls/hr Labetalol HCl (Normodyne) 5 mg IVPUSH Q5M PRN PRN Reason: SBP over 160 OR DBP over 95 Melatonin (Melatonin) 9 mg PO BEDTIME PRN PRN Reason: Sleep Last Admin: 07/08/18 00:05 Dose: 9 mg Metoclopramide HCl (Reglan) 10 mg IVPUSH Q6H PRN PRN Reason: NAUSEA NOT CONTROL BY ZOFRAN Metoprolol Succinate (Toprol Xl) 37.5 mg PO BEDTIME [facility] [place] [place] Last Admin: 07/07/18 21:02 Dose: Not Given Admin: 07/06/18 21:29 Dose: Ondansetron HCl (Zofran) 4 mg IVPUSH Q4H PRN PRN Reason: Nausea/Vomiting Pantoprazole Sodium (Protonix Granules) 40 mg PO ACBREAKFAST [facility] Last Admin: 07/08/18 07:50 Dose: 40 mg Admin: 07/07/18 07:46 Dose: 40 mg Sodium Chloride (Saline Flush) 10 ml IV ASDIRECTED PRN PRN Reason: LADLE PULLER Tamsulosin HCl (Flomax) 0.4 mg PO BEDTIME [facility] Last Admin: 07/07/18 20:34 Dose: 0.4 mg Admin: 07/06/18 21:17 Dose: 0.4 mg Admin: 07/05/18 20:36 Dose: 0.4 mg Admin: 07/05/18 11:42 Dose: 0.4 mg Warfarin Sodium (Coumadin) 10 mg PO ONETIME ONE Stop: 07/08/18 13:01 - Assessment Assessment (Free Text/Narrative):: Prem Victor is a 78 yo male s/p day 3 after exploratory laparotomy for SBO. He had been experiencing some altered mental status post-op which seems to have resolved now. Our consult with internal medicine proposed scopolamine to be the cause of AMS. Good pain control. Continues to have liquid diarrhea but is urinate w/o difficulty. Lightheadedness has improved and he is maintaining a BP of around 111/75. We recommend one more day in the hospital to monitor for any more AMS. - Plan Plan (Free Text/Narrative):: 1. S/p exploratory laparotomy -Tylenol PRN 2. Afib -Coumadin 10 mg 3. Resolved hypotension -Continue [employer] metoprolol
[2018-07-08] MEDS ORDERED: Warfarin 5 MG Tab PO ONE (13:00)
[2018-07-08] MEDS: Tamsulosin 0.4 MG Cap.ER PO SCH (21:12)
[2018-07-08] MEDS: Metoprolol Succinate 25 MG Tab.ER PO SCH (21:13)
[2018-07-09] MEDS: Heparin Sodium 5,000 Units/ML Vial SUBCUT SCH (04:18)
[2018-07-09] MEDS: Magnesium Sulfate/Water 2 GM in Premix Bag 1 BAG IV SCH (04:19)
[2018-07-09 07:37] VITALS: BP 108/72
[2018-07-09] MEDS: Pantoprazole 40 MG Delayed-Release Granules 1 Packet PO SCH (07:42)
[2018-07-09] MEDS: Celecoxib 200 MG Cap PO SCH (07:42)
[2018-07-09] MEDS: Escitalopram 20 MG Tab PO SCH (09:05)
[2018-07-09] MEDS ORDERED: Warfarin 5 MG Tab PO ONE (10:00)
--- NOTE | 2018-07-12 08:33 | DISCH ---
PREOPERATIVE DIAGNOSES: 1. Partial small bowel obstruction at jejunojejunostomy. 2. 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 3. Extensive intraabdominal adhesions. 4. Bariatric surgery status. 5. Hyperactive delirium after surgical procedure, likely medication-related. OPERATIVE PROCEDURES: Done on 07/05/2018; exploratory laparotomy with lysis of extensive adhesions: 1. Revision of jejunojejunostomy component of Coby-en-Y gastric bypass. 2. Small bowel stricturoplasty. 3. Placement of Interceed mesh to limit recurrent adhesion formation between pelvic and abdominal wall and underlying viscera. SUMMARY: This 78-year-old male presenting with postprandial abdominal pain. Initially, upper endoscopy was unremarkable and he was felt to most likely have a partial small bowel obstruction. The patient at the time of the operation was noted to have an element of small bowel volvulus, which was reduced. He was noted then to have a stricture at the jejunojejunostomy, which was revised, and a separate stricture of the Coby limb, which was also treated by means of stricturoplasty, and Interceed mesh placed to limit recurrent adhesion formation. Initially, postoperatively the patient did well. He subsequently developed fever, which was felt to be likely related to atelectasis, and hyperactive confusion type pattern, which was felt to most likely be medication-related, perhaps the Scopolamine patch, although that is not entirely clear. He is eating well, moving his bowels, and he will be discharged home. He will be following up with Dr. Stallworth, [facility] on 07/13/2018. He is to have a pro time drawn at that time for followup of his Coumadin anticoagulation status. He will be on a regular gastric bypass diet in the interim.
== END 2018-07-09 10:50 | disposition home or self-care (01) | DRG 330 ==
LOC: JP.SDSSCHI 05:31 → UNDOADMIN 05:31 → JP.SDS 05:31 → JP.MS 05:31 → JP.SDSSCHI 09:43 → EDSTATUS 12:00 → JP.MS 07-06 22:25
PROVIDERS: ADMIT Surgery; ATTEND Surgery
PROC: 0DN80ZZ Release Small Intestine, Open Approach (ICD-10-PCS; principal; 2018-07-05)
PROC: 0DB80ZZ Excision of Small Intestine, Open Approach (ICD-10-PCS; principal; 2018-07-05)
PROC: 0DNU0ZZ Release Omentum, Open Approach (ICD-10-PCS; principal; 2018-07-05)
PROC: 0WUF0JZ Supplement Abdominal Wall with Synthetic Substitute, Open Approach (ICD-10-PCS; principal; 2018-07-05)
DX: K56.51 Intestinal adhesions [bands], with partial obstruction (principal); F05 Delirium due to known physiological condition; J98.11 Atelectasis; K91.2 Postsurgical malabsorption, not elsewhere classified; K56.2 Volvulus; T44.3X5A Adverse effect of other parasympatholytics [anticholinergics and antimuscarinics] and spasmolytics, initial encounter; I95.9 Hypotension, unspecified; E83.39 Other disorders of phosphorus metabolism; R19.7 Diarrhea, unspecified; E61.0 Copper deficiency; E53.8 Deficiency of other specified B group vitamins; E55.9 Vitamin D deficiency, unspecified; I48.91 Unspecified atrial fibrillation; E60 Dietary zinc deficiency; E50.9 Vitamin A deficiency, unspecified; Z98.84 Bariatric surgery status; Z87.891 Personal history of nicotine dependence; Z79.01 Long term (current) use of anticoagulants; Z79.899 Other long term (current) drug therapy
CPT/HCPCS: 36415; 70470; 71045; 74240; 80048; 80053; 81001; 83735; 83880; 84100; 85025; 85027; 85610; 87493; 93005; 94762; A9270-GY; C9113; J0171; J0330; J0694; J1100; J1170; J1644; J2020; J2185; J2405; J2704; J2710; J2795; J3010; J3410; J3411; J3420; J3475; J3490; J7030; J7042; J7050; J7120; Q9967

== ENCOUNTER 2024-05-28 13:42 | Emergency (ER) | payer MEDICARE ==
[2024-05-28 14:02] VITALS: BP 109/49; PULSE 69
[2024-05-28] MEDS: Lidocaine 1% 20 ML MDV INJECT ONE (14:20)
[2024-05-28 14:36] LABS: BASOPHILS PERCENT AUTO 0.3 % (0.1-1.3); EOSINOPHILS ABSOLUTE AUTO 0.21 K/uL (0.00-0.40); EOSINOPHILS PERCENT AUTO 3.4 % (0.0-5.4); HEMATOCRIT 36.6 % (38.4-49.7); HEMOGLOBIN 12.3 g/dL (12.9-16.9); IMMATURE GRAN PERCENT AUTO 0.2 % (0.0-0.7); LYMPHOCYTES ABSOLUTE AUTO 1.65 K/uL (0.8-3.3); LYMPHOCYTES PERCENT AUTO 26.7 % (11.4-47.7); MEAN CORPUSCULAR HEMOGLOBIN 32.1 pg (31.6-35.5); MEAN CORPUSCULAR HGB CONC 33.6 g/dL (31.6-35.5); MEAN CORPUSCULAR VOLUME 95.6 fL (81.4-99.0); MONOCYTES ABSOLUTE AUTO 0.59 K/uL (0.20-0.90); MONOCYTES PERCENT AUTO 9.6 % (3.3-12.6); NEUTROPHILS ABSOLUTE AUTO 3.69 K/uL (1.0-7.6); NEUTROPHILS PERCENT AUTO 59.8 % (40.0-78.1); PLATELET COUNT,PLT 143 K/uL (130-375); RED BLOOD CELL COUNT 3.83 M/uL (4.14-5.76); WHITE BLOOD CELL COUNT,WBC 6.2 K/uL (3.2-11.0)
[2024-05-28 14:37] LABS: BASOPHILS ABSOLUTE AUTO 0.02 K/uL (0.00-0.10); IMMATURE GRAN ABSOLUTE AUTO 0.01 K/uL (0.00-0.23)
[2024-05-28 14:53] LABS: PROTHROMBIN TIME 63.9 sec (9.2-10.6)
[2024-05-28 15:21] LABS: INR 6.8
[2024-05-28] MEDS: Bacitracin Oint 1 GM U/D Packet TOP ONE (15:28)
[2024-05-28] MEDS: Diphtheria,Pertussis(Acell),Tetanus Vaccine 0.5 ML Syringe IM ONE (15:28)
== END 2024-05-28 16:20 | disposition home or self-care (01) ==
LOC: JP.ED 13:42
DX: S61.211A Laceration without foreign body of left index finger without damage to nail, initial encounter (principal); D68.32 Hemorrhagic disorder due to extrinsic circulating anticoagulants; Z23 Encounter for immunization; E11.9 Type 2 diabetes mellitus without complications; Z79.899 Other long term (current) drug therapy; X50.9XXA Other and unspecified overexertion or strenuous movements or postures, initial encounter
CPT/HCPCS: 12001; 36415; 73120-LT; 85025; 85610; 90471; 90715; 99283-25